=== PATIENT | female | born 1965 | race Caucasian/White ===

== ENCOUNTER 2017-07-21 10:30 | Outpatient (RCR) | payer OTHER, SELFPAY ==
--- NOTE | 2017-06-08 15:34 | HP.PTEVAL ---
Patient's Visit Information TALHA LIU is a 52 year old F referred to Physical Therapy by Zay Lazar with a diagnosis of L shoulder Injury. Date of Evaluation: 06/08/17 Physical Therapist: Jessica Rosado - Visit Plan Frequency: 2-3x /Week Duration: 4-6 Weeks Plan: 2-3X/ week for 4-6 weeks for L should PROM, AAROM, AROM, postural, scapular and RC strength with HEP and modalities PRN - Subjective Subjective: Pt had surgery last Jul (cleaned up RC cuff/ clipped bicep tendon) the and was going down stairs and slipped on the steps and now her shoulder hurts now. It was her L shoulder. It hurts in the front of the shuolder but sometimes it goes down the arm to the thumb and it is numb from time to time. Dr Arceo did her RC surgery. Dr Mckeon took an x-ray and it did not show anything. No x-rays of your neck. She has neck pain currently 10/05. She has weakness in her L hand. She felt something pop and like her bone rubbed against the bone. SHe is R handed. SHe holds her phone under L ear. It hurt immed at site of the injury. She is sleeping ok (4-5 hours). Pain is more with shouldr ER and holding her purse. She can sleep on that side - Pain L shoulder pain Pain Intensity (Out of 10): 6 c-spine Pain Intensity (Out of 10): 4 - Objective Posture: good. L shoulder AROM 130 degrees abd, 130 degrees flexion, ER WFL IR L1. R shoulder AROM 170 degrees abd, approx 170 flexion, ER WFL and IR t8. + HK test for pain on the L, - Empty can on the L. C-spine AROM: flexion 100%, ext 50%, SB L 50%, SBR 75% Rot B 75%. Palpation: tender R anterior shoulder under the acrominio. Able to get better ROM with PROM on the L than Active ROM. R gauge and instrument inspector strength 65# and L gauge and instrument inspector strength 60#. - Goals Goal 1:: I HEP Goal Time Frame: 4-6 Weeks Goal 2:: Increase L shoulder AROM to equal that on the R without pain (at time of eval: L shoulder AROM 130 degrees abd, 130 degrees flexion, ER WFL IR L1. R shoulder AROM 170 degrees abd, approx 170 flexion, ER WFL and IR t8) Goal Time Frame: 4-6 Weeks Goal 3:: Decrease L shoulder pain to 0/10 with carrying her purse or pushing out into ER Goal Time Frame: 4-6 Weeks Goal 4:: Sit with upright posture during treatment sessions Goal Time Frame: 4-6 Weeks - Rehabilitation Potential Rehabilitation Potential: Good - Anticipated Interventions Patient/Client Instruction: Educate patient on: Condition For the Purpose of:: To decrease pain, To decrease swelling/inflammation, To increase ROM, To improve nutrient delivery to tissue, To improve muscle performance and motor function, To improve ability to perform ADL's, To increase tolerance to activity/condition/position, To improve performance and independence with ADL's, To decrease soft tissue restriction, To increase flexibility/ROM Therapeutic Exercise to Include: Strength training, Postural training, Flexibilty training, Passive ROM, Active ROM, Scapular Strength/Stabilization For the Purpose of:: To decrease pain, To decrease swelling/inflammation, To increase ROM, To improve nutrient delivery to tissue, To improve muscle performance and motor function, To improve ability to perform ADL's, To increase tolerance to activity/condition/position, To improve performance and independence with ADL's, To improve ability of physical actions for home/community/work/leisure, To increase flexibility/ROM Manual Therapy Techniques to Include: Passive ROM, Soft tissue mobilization For the Purpose of:: To decrease pain, To increase ROM, To improve nutrient delivery to tissue, To improve muscle performance and motor function, To improve health of tissue, To decrease soft tissue restriction IF ES: Yes Cryotherapy (ice pack, ice massage): Yes Thermo therapy (hot pack): Yes Ultrasound (thermal/non thermal): Yes For the Purpose of:: To decrease pain, To decrease swelling/inflammation, To increase ROM, To improve nutrient delivery to tissue, To improve muscle performance and motor function Thank you for the opportunity to evaluate your patient. For Medicare and Medicare HMO plans, please review the plan of care and approve it. It will need to be FAXED BACK to us at [phone] for Medicare purposes. Please let me know if there are questions or concerns regarding this plan of care. Physician Signature: Date:
--- NOTE | 2017-07-02 11:39 | HP.PTEVAL_ITS ---
Patient's Visit Information TALHA LIU is a 52 year old F referred to Physical Therapy by Zay Lazar with a diagnosis of L shoulder Injury. Date of Evaluation: 06/08/17 Physical Therapist: Jessica Rosado - Visit Plan Frequency: 2-3x /Week Duration: 4-6 Weeks Plan: Continue with strengthening in painfree range and increasing ROM. Await MRI results - Subjective Subjective: Pt had surgery last Jul (cleaned up RC cuff/ clipped bicep tendon) the and was going down stairs and slipped on the steps and now her shoulder hurts now. It was her L shoulder. It hurts in the front of the shuolder but sometimes it goes down the arm to the thumb and it is numb from time to time. Dr rAceo did her RC surgery. Dr Mckeon took an x-ray and it did not show anything. No x-rays of your neck. She has neck pain currently 10/05. She has weakness in her L hand. She felt something pop and like her bone rubbed against the bone. SHe is R handed. SHe holds her phone under L ear. It hurt immed at site of the injury. She is sleeping ok (4-5 hours). Pain is more with shouldr ER and holding her purse. She can sleep on that side - Pain L shoulder pain Pain Intensity (Out of 10): 4 c-spine Pain Intensity (Out of 10): 3 - Objective Posture: good. L shoulder AROM 130 degrees abd, 130 degrees flexion, ER WFL IR L1. R shoulder AROM 170 degrees abd, approx 170 flexion, ER WFL and IR t8. + HK test for pain on the L, - Empty can on the L. C-spine AROM: flexion 100% , ext 50%, SB L 50%, SBR 75% Rot B 75%. Palpation: tender R anterior shoulder under the acrominio. Able to get better ROM with PROM on the L than Active ROM. R dental hygienist mobile coordinator strength 65# and L dental hygienist mobile coordinator strength 60#. - Goals Goal 1:: I HEP Goal Time Frame: 4-6 Weeks Goal 2:: Increase L shoulder AROM to equal that on the R without pain (at time of eval: L shoulder AROM 130 degrees abd, 130 degrees flexion, ER WFL IR L1. R shoulder AROM 170 degrees abd, approx 170 flexion, ER WFL and IR t8) Goal Time Frame: 4-6 Weeks Goal 3:: Decrease L shoulder pain to 0/10 with carrying her purse or pushing out into ER Goal Time Frame: 4-6 Weeks Goal 4:: Sit with upright posture during treatment sessions Goal Time Frame: 4-6 Weeks - Rehabilitation Potential Rehabilitation Potential: Good - Anticipated Interventions Patient/Client Instruction: Educate patient on: Condition For the Purpose of:: To decrease pain, To decrease swelling/inflammation, To increase ROM, To improve nutrient delivery to tissue, To improve muscle performance and motor function, To improve ability to perform ADL's, To increase tolerance to activity/condition/position, To improve performance and independence with ADL's, To decrease soft tissue restriction, To increase flexibility/ROM Therapeutic Exercise to Include: Strength training, Postural training, Flexibilty training, Passive ROM, Active ROM, Scapular Strength/Stabilization For the Purpose of:: To decrease pain, To decrease swelling/inflammation, To increase ROM, To improve nutrient delivery to tissue, To improve muscle performance and motor function, To improve ability to perform ADL's, To increase tolerance to activity/condition/position, To improve performance and independence with ADL's, To improve ability of physical actions for home/ community/work/leisure, To increase flexibility/ROM Manual Therapy Techniques to Include: Passive ROM, Soft tissue mobilization For the Purpose of:: To decrease pain, To increase ROM, To improve nutrient delivery to tissue, To improve muscle performance and motor function, To improve health of tissue, To decrease soft tissue restriction IF ES: Yes Cryotherapy (ice pack, ice massage): Yes Thermo therapy (hot pack): Yes Ultrasound (thermal/non thermal): Yes For the Purpose of:: To decrease pain, To decrease swelling/inflammation, To increase ROM, To improve nutrient delivery to tissue, To improve muscle performance and motor function Thank you for the opportunity to evaluate your patient. For Medicare and Medicare HMO plans, please review the plan of care and approve it. It will need to be FAXED BACK to us at [phone] for Medicare purposes. Please let me know if there are questions or concerns regarding this plan of care. Physician Signature: Date:
--- NOTE | 2017-07-21 11:12 | HP.PTDCSUM ---
HP - PT D/C Summary It has been my pleasure to treat TALHA LIU under orders from Zay Lazar, for the diagnosis of L shoulder Injury for a total of 10 visit(s). Discharge Date: 07/21/17 Please see the following information for a summary of their discharge status. - Subjective Subjective: Pt has surgery Aug 24, 2017 will be surgery. Pt reports that she may be a little stronger but no other improvement was made with PT. She has her HEP but it makes her hurt worse - Pain L shoulder pain Pain Intensity (Out of 10): 4 c-spine Pain Intensity (Out of 10): 3 - Overall Improvement % Improvement: 0 - Objective Objective/Function: AROM L shoulder flex 130 degrees, to L3, ER WFL. MMT L shoulder: ER 3-/5, : flexion 4-/5, IR 4/5, abd 3+/5. Increase pain with abd resisted. Pt sits with good posture. - Goals Goal 1:: I HEP Goal Progress: Goal Met Goal 2:: Increase L shoulder AROM to equal that on the R without pain (at time of eval: L shoulder AROM 130 degrees abd, 130 degrees flexion, ER WFL IR L1. R shoulder AROM 170 degrees abd, approx 170 flexion, ER WFL and IR t8) Goal Progress: Not Progressing Goal 3:: Decrease L shoulder pain to 0/10 with carrying her purse or pushing out into ER Goal Progress: Not Progressing Goal 4:: Sit with upright posture during treatment sessions Goal Progress: Goal Met - Plan Plan: DC PT to HEP and under surgeon care. - D/C Information Discharge Comments: DC PT back to surgeon If there are questions or concerns regarding this patient's physical therapy, please feel free to call me at [phone]. Thank you for the referral of this patient. Sincerely, Jessica Rosado
--- NOTE | 2017-07-21 11:23 | HP.PTDCS(2) ---
HP - PT D/C Summary (2) It has been my pleasure to treat TALHA LIU under orders from Zay Lazar, for the diagnosis of cervicalgia for a total of 6 visit(s). Discharge Date: Please see the following information for a summary of their discharge status. - Subjective Subjective: Pt reports that last time she had dry needling her she got an intense WOODY that lasted 2 days. She has surgery on her shoulder Aug 24. She has had neck pain for years and feels an MRI is necessary. - Overall Improvement % Improvement: 0 - Objective Objective/Function/Assessment: Pt reports no improvement in symptoms. DN only helped once and the other two times it made things worse. c-spine AROM: flex 100%, ext 50%, SB B 75%, Rot B 75%. Great posture - Goals Patient Goals: Improve Mobility, Improve Function, Decrease Pain, Improve ROM Goal 1:: I HEP Goal Progress: Goal Met Goal 2:: Decrease neck pain to 1/10 with ADL's Goal Progress: Not Progressing Goal 3:: Abolish L hand numbness Goal Progress: Not Progressing Goal 4:: Decrease mid trap muscle tension Goal Progress: Not Progressing - Plan Plan: DC PT back to physician reassessment. - D/C Information If there are questions or concerns regarding this patient's physical therapy, please feel free to call me at [phone]. Thank you for the referral of this patient. Sincerely, Jessica Rosado
== END 2017-07-21 19:00 | disposition home or self-care (01) ==
LOC: PT 10:30
PROVIDERS: Family Provider Family Medicine; PCP Family Medicine; Visit Provider Family Medicine
DX: S49.92XD Unspecified injury of left shoulder and upper arm, subsequent encounter (principal)
CPT/HCPCS: 97014; 97035; 97110; 97140; 97161; 97530; G0283

== ENCOUNTER → 2017-08-03 06:19 | Outpatient (CLI) | payer OTHER, SELFPAY ==
[2017-08-03 08:44] LABS: Estradiol 14.2 pg/mL; Free T3 3.2 pg/mL (2.18-3.98); T4 Free Direct 1.06 ng/dL (0.76-1.46); Thyroid Stim Hormone (TSH) 2.52 uIU/mL (0.358-3.74)
[2017-08-04 08:59] LABS: Progesterone Level 0.08 ng/mL (See Comment)
[2017-08-04 14:52] LABS: DHEA Sulfate 57.8 ug/dL (41.2-243.7)
== END ==
PROVIDERS: Family Provider Family Medicine; PCP Family Medicine; Visit Provider Specialist
DX: N95.1 Menopausal and female climacteric states (principal); R53.81 Other malaise; E03.8 Other specified hypothyroidism
CPT/HCPCS: 36415; 82627; 82670; 84144; 84403; 84439; 84443; 84481; 82626

== ENCOUNTER → 2017-08-14 09:23 | Outpatient (CLI) | payer OTHER, SELFPAY ==
--- NOTE | 2017-08-14 09:30 | MRI_ITS ---
STUDY: MRI CERVICAL SPINE WITHOUT CONTRAST REASON FOR EXAM: Female, 52 years old. Neck pain and numbness radiating down the left arm TECHNIQUE: Standardized fat and water weighted pulse sequences were obtained in the sagittal and axial planes. COMPARISON: June 18, 2017 cervical spine radiographs FINDINGS: Straightening of normal cervical lordosis. Craniocervical junction appears unremarkable. No evidence for cord edema or myelomalacia seen. Mild anterior wedging of the C4, C5 and C6 vertebral bodies which appear chronic. Disc desiccation at all levels. Loss of disc height at C4-C5, C5-C6 and C6-C7 levels with endplate degenerative changes. Slight heterogeneity of the marrow signal without evidence for marrow edema. Multilevel facet arthrosis. Vertebral artery flow voids are patent. No paraspinal soft tissue mass is identified. Level by level analysis: C2-C3 level: Uncovertebral joint and facet joint degenerative changes without significant central canal stenosis or neural foraminal narrowing. C3-C4 level: Uncovertebral joint and facet joint degenerative changes with broad-based disc aspect complexes superimposed small central disc protrusion with mild effacement of ventral thecal sac without significant central canal stenosis. C4-C5 level: Uncovertebral joint and facet joint degenerative changes with broad-based assessed right complex resulting in moderate right-sided and [id number] left-sided neural foraminal narrowing with mild effacement of ventral thecal sac and flattening of the ventral surface of the spinal cord. C5-C6 level: Uncovertebral joint and facet joint degenerative changes with broad-based disc osteophyte complexes with superimposed right paracentral disc protrusion resulting in indentation and deformity of the right ventrolateral surface of the spinal cord with moderate left-sided and mild right-sided neural foraminal narrowing. C6-C7 level: Uncovertebral joint and facet joint degenerative changes with broad-based disc osteophyte complexes and a superimposed left paracentral and foraminal level disc protrusion with moderate to severe left-sided neural foraminal narrowing and mild flattening of the left ventral lateral surface of the spinal cord. C7-T1 level: Uncovertebral joint and facet joint degenerative changes with broadbase disc disc osteophyte complexes resulting in mild bilateral neural foraminal narrowing without significant central canal stenosis No paraspinal soft tissue mass. IMPRESSION: Cervical spondylotic changes predominating at C4-C5, C5-C6 and C6-C7 levels. Please see above level by level complete analysis. No evidence for acute cervical spine fractures. Electronically Signed: Naun Vásquez, at 11:28 EST Tel , Service support , MRI/Spine Cervical (Routine)
== END ==
PROVIDERS: Family Provider Family Medicine; PCP Family Medicine; Visit Provider Family Medicine
DX: M54.2 Cervicalgia (principal)
CPT/HCPCS: 72141

== ENCOUNTER 2017-08-24 05:45 | Day surgery (SDC) | payer OTHER, SELFPAY ==
[2017-08-18 07:16] LABS: Hematocrit 39.3 % (37-47); Hemoglobin 12.9 g/dl (12.0-15.0); Mean Corp Hgb Conc 32.8 g/gl (32-36); Mean Corpuscular Hgb 27.8 pg (27.0-32.0); Mean Corpuscular Volume 84.7 fL (81-99); Mean Platelet Vol. 9.8 fl (6.2-12.0); Platelet Count 232 K/mm3 (150-450); RBC Distribution Width CV 13.2 % (11.6-14.6); RBC Distribution Width SD 40.9 fl (35.1-43.9); Red Blood Count 4.64 M/mm3 (4.2-5.4); White Blood Count 4.5 K/mm3 (4.4-11.0)
[2017-08-18 07:29] LABS: Scan Indicated on CBC? Y/N NO
[2017-08-18 07:39] LABS: Anion Gap 8 (5-15); BUN 12 mg/dL (7-18); Calcium,Total 8.5 mg/dL (8.5-10.1); Chloride 102 mmol/L (98-107); EST Glomerular Filtration Rate 50 mL/min (>60); Est Glom Filt Rate - Afr Amer 60 mL/min (>60); Glucose 155 mg/dL (74-106); Sodium Level 139 mmol/L (136-145)
--- NOTE | 2017-08-18 08:43 | EKG12_ITS ---
Test Reason : PREOP Blood Pressure : / mmHG Vent. Rate : 061 BPM Atrial Rate : 061 BPM P-R Int : 134 ms QRS Dur : 082 ms QT Int : 384 ms P-R-T Axes : 044 048 061 degrees QTc Int : 386 ms Normal sinus rhythm Normal ECG Confirmed by TODD LEONE ([id number]), photography editor CORNELIO HANSEN ([id number]) on 08/19/2017 1:18:28 PM Referred By: Zay Lazar Confirmed By:TODD LEONE
[2017-08-24 05:55] VITALS: BP 129/82; PULSE 69; RESP 16; TEMP 37.1; O2SAT 100; BMI 27.2
--- NOTE | 2017-08-24 06:58 | DCINST_ITS ---
Discharge Activity: Return to Normal Activity, May not drive while taking narcotic pain medications., May Shower May shower in (days): 2 May resume sexual activity in: 6 weeks Ice area for (Minutes): 20 - use polar care as needed Weight Bearing Status: No weight bearing Additional Activity Instructions:: May flex and extend elbow ad lisa. Sling 24 7 except with shower. Call your doctor if your incision/area has: Continuous Slow Oozing, Sudden Increased Bleeding, Increased Pain/ Swelling, Increased Redness, Foul Smelling Discharge, Swelling at the incision site Call your doctor if you observe: Fever of 101 or Higher, Coldness, Increased Pain, Numbness or Tingling, Change in Color, Inability to urinate, Inability to have a bowel movement, Using more than one pad per hour, Shortness of breath, Dizziness, Fainting spells, Swelling in the ankles, Chest pain, Prolonged hiccoughing, Increased palpitations (irregular heartbeat), Calf discomfort, Uncontrolled pain Suture Line Care: Avoid Pulling/Pushing, Avoid Pinching/Bending Change Dressing in (Days):: 2 Remove Dressing in (days):: 2 Cleanse incision/area with: Soap & Water Additional Dressing/Incision Instructions:: May shower on . Remove dressing completely. Do not submerge wound. Replace with simple Band-Aids upon completion. Allergies/Adverse Reactions: Allergies No Known Allergies Allergy (Verified 08/17/17 15:23) Medications to take at Discharge armodafinil 50 mg tablet 150 mg PO QAM 08/15/17 bupropion HCl XL 300 mg 24 hr tablet, extended release 150 mg PO BID 08/15/17 celecoxib 50 mg capsule 200 mg PO DAILY 08/15/17 Prednisone 10 mg PO DAILY 08/17/17 Progesterone 100 mg PO DAILY 08/17/17 Spironolactone [Aldactone] 100 mg PO DAILY 08/17/17 Docusate Sodium [Colace] 100 mg PO BID PRN PRN #10 cap 08/24/17 Hydrocodone Bitart/Apap 5-325 [[place] 5/325] 1 - 2 tablet PO Q6H PRN PRN #30 tablet 08/24/17 ProMETHAzine [Phenergan] 25 mg PO Q4H PRN PRN #10 tab 08/24/17 The following prescriptions were given: ProMETHAzine [Phenergan] 25 mg PO Q4H PRN PRN #10 tab PRN Reason: Nausea Hydrocodone Bitart/Apap 5-325 [[place] 5/325] 1 - 2 tablet PO Q6H PRN PRN #30 tablet PRN Reason: Pain Docusate Sodium [Colace] 100 mg PO BID PRN PRN #10 cap PRN Reason: Constipation Primary Care Physician: Andrew Berrios MD [Primary Care Provider] - Please Follow Up With: Ace Pepper DO When: call [facility] for appt for 2 weeks Proposed Discharge Date: 08/24/17
[2017-08-24] MEDS: Cefazolin 2 GM in 0.9% Normal Saline 100 ML IV (07:30)
--- NOTE | 2017-08-24 08:37 | OP.PN_ITS ---
Immediate Post-Op Note Date of Procedure: 08/24/17 Primary Surgeon/Physician: Ace Pepper, grapple skidder operator: none Pre-Operative Diagnosis: Left shoulder partial rotator cuff tear subacromial and subcoracoid impingement Post-Operative Diagnosis: Same as above Surgery/Procedure Performed:: Butch diagnostic arthroscopy partial articular sided rotator cuff debridement and arthroscopic subcoracoid decompression Description of Surgical Findings:: See dictation Estimated Blood Loss: 10 Specimen's removed: None Type of Anesthesia:: Block,Regional ASA Class: ASA1 Normal Healthy Patient - Admit VTE Documentation VTE Present on Admission: No VTE Mechan Device Prophylaxis: SCD's, Knee High MARVIN Hose VTE Pharm Prophylaxis ordered?: No
[2017-08-24 08:43] VITALS: BP 129/82; BP 142/88; PULSE 90; RESP 16; TEMP 36.3; O2SAT 98
--- NOTE | 2017-08-24 08:44 | PCM.OPRPT ---
Report of Operation Date of Procedure: 08/24/17 Pre-Operative Diagnosis: Left shoulder partial rotator cuff tear subacromial and subcoracoid impingement Post-Operative Diagnosis: Same as above Surgery/Procedure Performed:: Butch diagnostic arthroscopy partial articular sided rotator cuff debridement and arthroscopic subcoracoid decompression Description of Surgical Findings:: 52-year-old female with recalcitrant left shoulder pain after having previously undergone a shoulder arthroscopy and a reported rotator cuff repair with a proximal biceps tenodesis. This was done by an outside provider. Having failed conservative measures patient elected for a diagnostic arthroscopy rotator cuff repair versus debridement and evaluation of the biceps if able for consideration for subpectoral tenodesis if there was instability. Patient was aware that the biceps was not easily identifiable limited attempt at retrieval would be made as it may be more problematic. Patient was subsequently consented the aforementioned procedure. She was met in the holding area where the left upper extremity was marked and identified by the with surgeon. Patient was taken to the operating room in satisfactory condition with somewhat to place to identify patient up procedure limb. She received 2 g of Ancef. She underwent a successful interscalene block. She was then prepped and draped in the usual fashion. Left upper extremity was placed into the [place] O arm boothe. Again the patient was placed into the beachchair position with all bony and soft tissue prominences protected. Her head was in a fine neutral position. She was then prepped and draped in usual fashion. Posterior portal from previous operative intervention was used. We entered into into the intra-articular space. Upon identification of the anatomic triangle a revised anterior portal was established for better visualization of the intra-articular space a little bit more medial. Diagnostic scope should the patient be absent in the biceps tendon as expected. She had some mild fraying to the labral tissue posterior superiorly. She had adhesions over the superior aspect of the glenoid. The subscapularis otherwise was normal. She had mild fraying to the articular side of the rotator cuff which was gently debrided. Otherwise the overall tickler articular margin looked very good. Anterior central posterior cuffs were well within normal limits. She had mild synovitis within the shoulder joint but no loose bodies x-ray pouch. Posterior inferior and anterior inferior labrum was otherwise normal. She had grade II chondromalacia changes the glenoid. Grade 1 changes to the humeral head. The subscapularis again had good type formation. The biceps tenodesis was not visualized anteriorly. At that point the scope was retracted move the subacromial space established a lateral portal. We performed a revision subacromial bursectomy. An acromioplasty was not needed. The patient had remnant either Kenalog crystals within the shoulder or some degree of calcific tendinitis. This was debrided mechanically using a shaver and vapor cautery and releasing the gutters circumferentially around the shoulder joint. At that point time we worked our way anteriorly over top of the shoulder. With visualization from the lateral portal we then performed a standard arthroscopic subcoracoid decompression using mechanical shaver and vapor. We identified the coracoid process itself release any scar formation 0 anteriorly. The patient's strap muscles were slightly rubbing anteriorly but again this cannot necessarily be released. CA ligament was still intact and mildly hypertrophied hypertrophic it was gently debrided to a stable rim. Otherwise evaluation of the subacromial space in the subcortical space revealed just simple scar formation which was debrided. The biceps tendon was not visualized I did not make an attempt to open the sheath as I did not want to ensure that injure that area of the shoulder. At that point time I felt the scope was completed. The scope was retracted portal sites were closed with 3-0 nylon. She was then dressed in usual fashion with Xeroform 4 x 4's ABDs and Medipore tape and placed into a simple sling. If the patient were to fail operative intervention my next consideration would be for an open approach to the shoulder to decompress the biceps formally within the groove and then deformity the most likely suprapectoral biceps tenodesis at that point time. This would remove the biceps from the groove still be may be problematic. For the patient at this time. However will rehab the patient at the decompression and see how she does. Any major issues please contact me. Other available all time during our procedure. We had no drains or complications and no implants. geographic information systems director: none Type of Anesthesia:: Block,Regional Specimen's removed: None Estimated Blood Loss (mL): 10 Grafts/Implants Used: None - Complications None - Admit VTE Documentation VTE Present on Admission: No VTE Mechan Device Prophylaxis: SCD's, Knee High MARVIN Hose VTE Pharm Prophylaxis ordered?: No Reason prophylaxis not ordered:: Treatment Not Indicated
[2017-08-24] MEDS: Ketorolac 30 MG/ML Syringe IV (08:58)
[2017-08-24 09:00] VITALS: BP 129/82; BP 132/89; PULSE 84; RESP 16; O2SAT 99
[2017-08-24 09:15] VITALS: BP 129/82; BP 134/92; PULSE 75; RESP 16; TEMP 36.6; O2SAT 95
[2017-08-24 09:54] VITALS: BP 129/82
== END 2017-08-24 10:25 | disposition home or self-care (01) ==
LOC: SDC 05:45 → AC 05:46
PROVIDERS: Family Provider Family Medicine; PCP Family Medicine; Visit Provider Orthopaedic Surgery
PROC: (CPT 29827; principal; 2017-08-24 06:55)
DX: M75.42 Impingement syndrome of left shoulder (principal); M75.112 Incomplete rotator cuff tear or rupture of left shoulder, not specified as traumatic; M25.512 Pain in left shoulder; G89.29 Other chronic pain
CPT/HCPCS: 01630; 29822; 29826; 64450; 36415; 80048; 85027; J7120

== ENCOUNTER → 2017-09-07 06:27 | Outpatient (CLI) | payer OTHER, SELFPAY ==
[2017-09-07 07:51] LABS: Estradiol 17.3 pg/mL
[2017-09-08 09:48] LABS: Progesterone Level 8.91 ng/mL (See Comment)
== END ==
PROVIDERS: Family Provider Family Medicine; PCP Family Medicine; Visit Provider Specialist
DX: N95.1 Menopausal and female climacteric states (principal)
CPT/HCPCS: 36415; 82670; 84144; 84403

== ENCOUNTER 2018-04-28 15:45 | Outpatient (RCR) | payer OTHER, SELFPAY ==
--- NOTE | 2017-04-28 15:12 | MASS.DISCH ---
Massage Therapy Discharge Summary: Discharge Date: 04/28/2017 Caron was seen for a massotherapy evaluation on 07/23/2016 with the diagnosis of cervicalgia. She was treated with ten sessions of massage consisting of deep tissue techniques, myofascial release and trigger point compression to her neck, shoulders, lower back and hips. Caron responded well to the therapy by reporting decreased tension and pain throughout her head, neck and lower back muscle groups. Her goals for therapy were met throughout the treatment sessions. At this time Caron is being discharged from our care at [facility] facility.
--- NOTE | 2017-04-28 15:18 | DS.PCM_ITS ---
Massage Therapy Discharge Summary: Discharge Date: 04/28/2017 Caron was seen for a massotherapy evaluation on 07/23/2016 with the diagnosis of cervicalgia. She was treated with ten sessions of massage consisting of deep tissue techniques, myofascial release and trigger point compression to her neck , shoulders, lower back and hips. Caron responded well to the therapy by reporting decreased tension and pain throughout her head, neck and lower back muscle groups. Her goals for therapy were met throughout the treatment sessions. At this time Caron is being discharged from our care at [facility] facility.
--- NOTE | 2017-07-20 20:01 | MASS.EVAL_ITS ---
Massage Therapy Evaluation: Initial Evaluation Date: 07/20/2017 SUBJECTIVE: Caron is a 52 year old female who was referred to the [facility] facility for a massotherapy evaluation by Dr. Zay Lazar with the diagnosis of back pain. Caron presents today with the symptoms of tension and pain in her neck, upper back, lower back and right shoulder. She reports having a medical history of arthritis, chronic neck and back pain, five or more headaches a week and radiating pain in neck, arms, and legs. She reports having minimal limitations during his daily activities currently. OBJECTIVE: Upon observation Caron has poor posture with her head forward and shoulders forward from the neutral position in sitting and standing. After examination and palpation I found Caron to have very high muscle tension in her scalenes, trapezius, rhomboids, and sub occipitals with moderate restrictions in cervical ROM. Her thoracic and lumbar paraspinals were tender with muscle knots. Her hips and lumbar region were also tight with tender points. The first treatment consisted of a one hour massage to her upper body with myofascial release, muscle stripping and trig point compression techniques. ASSESSMENT: I feel that Caron is a good candidate for massotherapy at this time. She had a favorable response to the first treatment with reduction in her muscle aches, pain and tension. She also had improvement in her cervical and lumbar range of motion with improved flexibility in her neck and back. PLAN: The plan of care was reviewed with the patient. The patient is to be seen on as needed basis for a total of ten sessions with the recommendation of once every four weeks for a one hour treatment.
== END 2018-04-28 19:00 | disposition home or self-care (01) ==
LOC: MASS 15:45
PROVIDERS: Family Provider Family Medicine; PCP Family Medicine; Visit Provider Family Medicine
DX: M54.5 Low back pain (principal)
CPT/HCPCS: 97124

== ENCOUNTER → 2018-05-30 15:32 | Outpatient (CLI) | payer OTHER, SELFPAY ==
--- NOTE | 2018-05-30 15:34 | BI_ITS ---
MAMMOGRAPHY - BILATERAL SCREENING REASON FOR EXAM: Female, 53 years old. Routine annual screening examination. PERTINENT HISTORY: Non-contributory. TECHNIQUE: Digital bilateral breast jayson (3D mammographic acquisition) in the CC and MLO projections. 2-D mediolateral oblique (MLO) and craniocaudad (CC) views of both breasts were obtained. CAD: Full Field Digital Mammography with Computer Added Detection was performed. COMPARISON: Comparison is made with prior examination dated May 27, 2017 and May 19, 2016. FINDINGS: Breast Composition: There are scattered areas of fibroglandular density. There are no dominant masses or suspicious calcifications. No other significant abnormalities are identified. There has been no significant change since the prior study. BI/SCREENING MAMM (CAD), BILAT IMPRESSION: Stable bilateral screening mammogram. Yearly follow-up mammogram recommended. (A) ASSESSMENT CATEGORY: BIRADS Category 1: Negative. A letter regarding these results will be sent to the patient by the facility within 30 days. Approximately 10% of breast cancers are not detected by mammography. A normal mammogram should not delay biopsy of a clinically suspicious abnormality. [id number] Electronically Signed: Moises Valerio MD at 8:19 EST Tel [phone], Service support ,
== END ==
PROVIDERS: Family Provider Family Medicine; PCP Family Medicine; Referring Provider Family Medicine; Visit Provider Family Medicine
DX: Z12.31 Encounter for screening mammogram for malignant neoplasm of breast (principal)
CPT/HCPCS: 77063; 77067

== ENCOUNTER → 2018-09-20 16:57 | Outpatient (CLI) | payer OTHER, SELFPAY ==
[2018-09-20 16:46] VITALS: BMI 28.6
--- NOTE | 2018-09-20 16:59 | RAD_ITS ---
STUDY: X-RAY - RIGHT KNEE REASON FOR EXAM: Female, 53 years old. Trauma TECHNIQUE: 4 view(s) of the knee. COMPARISON: None. FINDINGS: Normal visualized distal femur. Normal visualized proximal tibia and fibula. Normal proximal tibiofibular articulation. Normal medial femorotibial compartment. Normal lateral femorotibial compartment. Normal patellofemoral articulation. The soft tissue structures are unremarkable. RAD/Knee 4 or More Views IMPRESSION: Normal x-ray examination of the knee. Electronically Signed: Benjamín Herrera MD at 18:04 EDT , Service support ,
--- NOTE | 2018-09-20 16:59 | RAD_ITS ---
STUDY: X-RAY - RIGHT WRIST REASON FOR EXAM: Female, 53 years old. Fall. TECHNIQUE: 3 view(s) of the wrist were obtained. COMPARISON: None. FINDINGS: Normal visualized distal radius and ulna. Tiny calcification beyond the tip of the ulnar styloid may be a calcification in the triangular fibrocartilage or an old avulsion fracture. Normal radiocarpal articulation. Normal distal radioulnar articulation. Normal carpal bones. Normal carpal articulations. Normal carpometacarpal articulation of the thumb. Normal second through fifth carpometacarpal articulations. Normal visualized metacarpal bones. The soft tissue structures are unremarkable. There is no demonstrated acute fracture. RAD/Wrist min 3 Views IMPRESSION: No acute abnormality. Electronically Signed: Romario Martinez MD at 18:14 EDT , Service support ,
== END ==
PROVIDERS: Family Provider Family Medicine; PCP Family Medicine; Referring Provider Physician Assistant Surgical; Visit Provider Physician Assistant Surgical
DX: S80.01XA Contusion of right knee, initial encounter (principal); S66.911A Strain of unspecified muscle, fascia and tendon at wrist and hand level, right hand, initial encounter
CPT/HCPCS: 73110; 73564

== ENCOUNTER → 2019-02-02 20:00 | Outpatient (CLI) | payer OTHER, SELFPAY ==
[2018-12-28 10:41] VITALS: BMI 29.8
== END ==
PROVIDERS: Family Provider Family Medicine; PCP Family Medicine; Referring Provider Internal Medicine Critical Care Medicine; Visit Provider Internal Medicine Critical Care Medicine
DX: G47.33 Obstructive sleep apnea (adult) (pediatric) (principal)
CPT/HCPCS: 95811

== ENCOUNTER → 2019-02-16 09:00 | Outpatient (CLI) | payer OTHER, SELFPAY ==
[2019-01-25 06:52] VITALS: BMI 29.8
== END ==
PROVIDERS: Family Provider Family Medicine; PCP Family Medicine; Visit Provider Nurse Practitioner Acute Care
DX: Z46.89 Encounter for fitting and adjustment of other specified devices (principal)

== ENCOUNTER → 2019-03-17 13:00 | Outpatient (CLI) | payer OTHER, SELFPAY ==
[2019-01-25 06:52] VITALS: BMI 29.8
== END ==
PROVIDERS: Family Provider Family Medicine; PCP Family Medicine; Referring Provider Family Medicine; Visit Provider Family Medicine
DX: N30.01 Acute cystitis with hematuria (principal)
CPT/HCPCS: 87086

== ENCOUNTER → 2019-04-05 08:33 | Outpatient (CLI) | payer OTHER, SELFPAY ==
[2019-04-04 05:57] VITALS: BMI 31.6
[2019-04-05 09:24] LABS: Iron 60 ug/dL (50-170); Iron Binding Capacity,Total 449 ug/dL (250-450); PERCENT IRON SATURATION 13.4 % (15.0-55.0)
== END ==
PROVIDERS: Family Provider Family Medicine; PCP Family Medicine; Referring Provider Internal Medicine Critical Care Medicine; Visit Provider Internal Medicine Critical Care Medicine
DX: G47.33 Obstructive sleep apnea (adult) (pediatric) (principal); G25.81 Restless legs syndrome
CPT/HCPCS: 36415; 83540; 83550

== ENCOUNTER → 2019-05-05 10:18 | Outpatient (CLI) | payer OTHER, SELFPAY ==
[2019-04-04 05:57] VITALS: BMI 31.6
[2019-05-05 12:40] LABS: Thyroid Stim Hormone (TSH) 1.16 uIU/mL (0.358-3.74)
[2019-05-05 12:45] LABS: Absolute Lymphocyte Count 1.71 X10^3/uL (0.83-4.51); Absolute Neutrophil Count 3.2 X10^3/uL (2.0-7.7); Basophil# 0.04 X10^3/uL; Basophil% 0.7 % (0-1); Eosinophil# 0.17 X10^3/uL; Hematocrit 35.7 % (37-47); Lymphocyte # 1.71 X10^3/ul (4.0); Lymphocyte % 30.6 % (19-41); Mean Corp Hgb Conc 30.8 g/dL (32-36); Mean Corpuscular Hgb 24.7 pg (27.0-32.0); Mean Platelet Vol. 11.7 fl (6.2-12.0); Monocyte# 0.45 X10^3/uL; Monocyte% 8.1 % (0-10); NRBC Flagged by Analyzer 0 % (0-5); Neutrophil % 57.2 % (47-70); Platelet Count 234 K/mm3 (150-450); RBC Distribution Width CV 13.7 % (11.6-14.6); RBC Distribution Width SD 40.1 fl (35.1-43.9); Red Blood Count 4.46 M/mm3 (4.2-5.4); White Blood Count 5.6 K/mm3 (4.4-11.0)
== END ==
PROVIDERS: Family Provider Family Medicine; PCP Family Medicine; Referring Provider Family Medicine; Visit Provider Family Medicine
DX: R53.83 Other fatigue (principal)
CPT/HCPCS: 36415; 84443; 85025

== ENCOUNTER → 2019-05-31 13:30 | Outpatient (CLI) | payer OTHER, SELFPAY ==
[2019-04-04 05:57] VITALS: BMI 31.6
--- NOTE | 2019-05-31 13:32 | BI_ITS ---
MAMMOGRAPHY - BILATERAL SCREENING REASON FOR EXAM: Female, 54 years old. Routine annual screening examination. PERTINENT HISTORY: Non-contributory. TECHNIQUE: Digital bilateral breast hollie (3D mammographic acquisition) in the CC and MLO projections. 2-D mediolateral oblique (MLO) and craniocaudad (CC) views of both breasts were obtained. CAD: Full Field Digital Mammography with Computer Added Detection was performed. COMPARISON: Comparison is made with prior examination dated May 30, 2018 and May 27, 2017. FINDINGS: Breast Composition: There are scattered areas of fibroglandular density. There are no dominant masses or suspicious calcifications. No other significant abnormalities are identified. There has been no significant change since the prior study. BI/SCREEN MAMM (CAD) W/HOLLIE BILAT IMPRESSION: Stable bilateral screening mammogram. Yearly follow-up mammogram recommended. (A) ASSESSMENT CATEGORY: BIRADS Category 1: Negative. A letter regarding these results will be sent to the patient by the facility within 30 days. Approximately 10% of breast cancers are not detected by mammography. A normal mammogram should not delay biopsy of a clinically suspicious abnormality. [id number] Electronically Signed: Moises Valerio, at 14:47 EST , Service support ,
== END ==
PROVIDERS: Family Provider Family Medicine; PCP Family Medicine; Referring Provider Family Medicine; Visit Provider Family Medicine
DX: Z12.31 Encounter for screening mammogram for malignant neoplasm of breast (principal)
CPT/HCPCS: 77063; 77067

== ENCOUNTER → 2019-06-08 12:39 | Outpatient (CLI) | payer OTHER, SELFPAY ==
[2019-04-04 05:57] VITALS: BMI 31.6
--- NOTE | 2019-06-08 12:55 | MRI_ITS ---
STUDY: MRI BRAIN WITH AND WITHOUT CONTRAST REASON FOR EXAM: Female, 54 years old. brain lesion, bilateral arm numbness and tingling, pain TECHNIQUE: Standardized multiplanar fat and water weighted pulse sequences were obtained. Dotarem 15cc iv was administered for the contrast portion of the examination. COMPARISON: None. FINDINGS: Normal size of the ventricles and extra-axial spaces for the patient''s age. Normal white matter tracts of the supratentorial brain. There is no evidence for recent intracranial ischemia or other cause of cytotoxic edema on diffusion weighted imaging (DWI). There are no demyelinating plagues of the supratentorial brain, brainstem or cerebellum. There are no findings suspicious for multiple sclerosis (MS). Normal T2* images of the brain without demonstrated susceptibility artifact. There is no demonstrated hemosiderin stain. No hydrocephalus. No midline shift. Normal bilateral basal ganglia. Normal thalami. There is no extra-axial fluid accumulation. Normal flow voids within the major intracranial circulation suggesting patency by spin echo criteria. Normal venous enhancement. There is no enhancing intra-axial or extra-axial abnormality. Normal sella turcica, pituitary gland, infundibular stalk, optic chiasm and hypothalamus. Normal tectal plate and pineal gland. Normal midbrain, dhaval and medulla. Normal cerebellum. Normal basal cisterns. Normal bilateral temporal bones. Normal bilateral internal auditory canals. No demonstrated orbital abnormality, within the constraints of a routine brain study. Normal visualized paranasal sinuses. Normal calvarium and skull base. Normal visualized soft tissue structures. Normal visualized upper cervical spine. MRI/Brain W/WO Contrast IMPRESSION: Negative unenhanced and enhanced MRI of the brain. Electronically Signed: Gordon Mosquera MD at 23:59 EST , Service support ,
--- NOTE | 2019-06-08 12:55 | MRI_ITS ---
STUDY: MRI CERVICAL SPINE WITHOUT CONTRAST REASON FOR EXAM: Female, 54 years old. Radiculopathy. Spinal stenosis. Bilateral arm numbness and tingling. TECHNIQUE: Standardized fat and water weighted pulse sequences were obtained in the sagittal and axial planes. COMPARISON: August 14, 2017 FINDINGS: No marked change from July. Cervical straightening. No significant scoliosis. No abnormal cervical cord signal. Symmetric vascular flow voids. No acute fracture, dislocation or osseous destruction. Mild facet joint arthrosis. No spondylolisthesis. Normal foramen magnum and brainstem-cervical cord junction. Normal craniovertebral junction. Normal anterior atlantoaxial articulation. Normal odontoid process. C2-3: Normal endplates. Normal disc height, signal and morphology. Normal central canal and intervertebral neural foramina. C3-4: Normal endplates. Shallow disc bulge. Normal central canal and intervertebral neural foramina. C4-5: Mild endplate spondylosis. Asymmetric disc bulge with mild central canal narrowing. Severe right and moderate left neural foramina narrowing. C5-6: Mild endplate spondylosis. Asymmetric disc bulge with mild central canal narrowing. Moderate left neural foraminal narrowing. Normal right neural foramina. C6-7: Mild endplate spondylosis. Left paracentral disc protrusion (axial image 34 series 8) with mild central canal narrowing. Severe left and mild right neural foraminal narrowing. C7-T1: Normal endplates. Bilobed disc bulge without central canal narrowing. Severe left and mild right neural foramina narrowing. MRI/Spine Cervical (Routine) IMPRESSION: No abnormal cervical cord signal Multilevel intervertebral disc disease with mild central canal narrowing at C4-5, C5-6 and C6-7 Multilevel neural foraminal narrowing predominating at C4-5 through C6-7 Cervical straightening with mild osteoarthritis Electronically Signed: Sinan Ashley DO at 10:58 EST Tel , Service support ,
== END ==
PROVIDERS: Family Provider Family Medicine; PCP Family Medicine; Referring Provider Neurological Surgery; Visit Provider Neurological Surgery
DX: M48.02 Spinal stenosis, cervical region (principal); M54.12 Radiculopathy, cervical region
CPT/HCPCS: 70553; 72141

== ENCOUNTER 2019-06-08 17:00 | Outpatient (RCR) | payer OTHER, SELFPAY ==
--- NOTE | 2018-04-28 18:35 | MASS.DISCH ---
Massage Therapy Discharge Summary: Discharge Date: 04/28/2018 Caron was seen for a massotherapy evaluation on 07/20/2017 with the diagnosis of back pain. She was treated with ten sessions of massage therapy consisting of deep pressure soft tissue techniques, myofascial release and trigger point compression to her neck, shoulders, thoracic, lower back and hips. Caron responded well to the therapy by reporting decreased tension and pain throughout her interscapular region, lower back and hips. Her goals for therapy were met throughout the treatment sessions. At this time this patient is being discharged from our care at [facility]
--- NOTE | 2018-07-20 12:24 | MASS.EVAL ---
Massage Therapy Evaluation: Initial Evaluation Date: 07/20/2018 SUBJECTIVE: Caron is a 53 year old female who was referred to the [facility] facility for a massotherapy evaluation by Dr. Lazar with the diagnosis of cervicalgia. Caron presents today with the symptoms of tension and pain in her neck and shoulders. She also complains of neck and back stiffness with pain intermittently in her low back, bilateral hip tension and right shoulder pain. She complains of numbness in bilateral upper extremities with radiating pain in her neck, upper extremities, lower extremities and buttocks. Caron reports having a past medical history of arthritis and bilateral shoulder surgeries. She reports having minimal improvement with exercise and stretching. OBJECTIVE: Upon observation Caron has slight head forward in sitting and standing postures. After examination and palpation I found Caron to have high muscle tension with tenderness and myofascial restrictions in her sub occipitals, levator scapulae, trapezius, rhomboids, scalenes, and thoracic paraspinals. Her QL?s, lumbar paraspinals, glute medius and minimus all were very tight with fascial restrictions, tender points and trigger points. The first treatment consisted of a one hour massage to her upper body with myofascial release, muscle stripping, trigger point compression techniques, and cervical manual traction. ASSESSMENT: I feel that Caron is a good candidate for massotherapy at this time. She had a favorable response to the first treatment with reduction in her muscle aches, pain and tension. She also had improvement in her cervical flexibility and low back flexibility. PLAN: The plan of care was reviewed with the patient. The patient is to be seen on an as needed basis for a total of ten sessions with the recommendation of once every month for a one hour treatment.
--- NOTE | 2018-07-20 12:33 | MASS.EVAL_ITS ---
Massage Therapy Evaluation: Initial Evaluation Date: 07/20/2018 SUBJECTIVE: Caron is a 53 year old female who was referred to the [facility] facility for a massotherapy evaluation by Dr. Lazar with the diagnosis of cervicalgia. Caron presents today with the symptoms of tension and pain in her neck and shoulders. She also complains of neck and back stiffness with pain intermittently in her low back, bilateral hip tension and right shoulder pain. She complains of numbness in bilateral upper extremities with radiating pain in her neck, upper extremities, lower extremities and buttocks. Caron reports having a past medical history of arthritis and bilateral shoulder surgeries. She reports having minimal improvement with exercise and stretching. OBJECTIVE: Upon observation Caron has slight head forward in sitting and standing postures. After examination and palpation I found Caron to have high muscle tension with tenderness and myofascial restrictions in her sub occipitals, levator scapulae, trapezius, rhomboids, scalenes, and thoracic paraspinals. Her QL?s, lumbar paraspinals, glute medius and minimus all were very tight with fascial res trictions, tender points and trigger points. The first treatment consisted of a one hour massage to her upper body with myofascial release, muscle stripping, trigger point compression techniques, and cervical manual traction. ASSESSMENT: I feel that Caron is a good candidate for massotherapy at this time. She had a favorable response to the first treatment with reduction in her muscle aches, pain and tension. She also had improvement in her cervical flexibility and low back flexibility. PLAN: The plan of care was reviewed with the patient. The patient is to be seen on an as needed basis for a total of ten sessions with the recommendation of once every month for a one hour treatment.
--- NOTE | 2019-06-15 13:11 | MASS.DISCH ---
Massage Therapy Discharge Summary: Discharge Date: 06/15/2019 Caron was seen for a massotherapy evaluation on 07/20/2018 with the diagnosis of cervicalgia. She was treated with nine sessions of massage therapy consisting of moderate to deep pressure soft tissue techniques, myofascial release and trigger point compression to her cervical, thoracic, lower back and upper extremities. Caron responded well to the therapy by reporting decreased tension and pain throughout her head, neck, shoulders, lower back and hips. Her goals for therapy were met throughout the treatment sessions. At this time this patient is being discharged from our care at [facility] facility.
== END 2019-06-08 19:00 | disposition home or self-care (01) ==
LOC: MASS 17:00
PROVIDERS: Family Provider Family Medicine; PCP Family Medicine; Referring Provider Family Medicine; Visit Provider Family Medicine
DX: M54.2 Cervicalgia (principal)
CPT/HCPCS: 97124

== ENCOUNTER → 2019-07-06 13:00 | Outpatient (CLI) | payer OTHER, SELFPAY ==
[2019-06-13 07:57] VITALS: BMI 31.6
--- NOTE | 2019-07-06 13:01 | VDLE_ITS ---
Reason For Study: Venous insufficiency RIGHT LEFT CFV is compressible, spontaneous, phasic, CFV is compressible, spontaneous, phasic, competent and demonstrates normal competent, and demonstrates normal augmentation. augmentation. FV is compressible, spontaneous, phasic, FV is compressible, spontaneous, phasic, competent and demonstrates normal competent and demonstrates normal augmentation. augmentation. POP V is compressible, spontaneous, phasic, POP V is compressible, spontaneous, phasic, competent and demonstrates normal competent and demonstrates normal augmentation. augmentation. T/P Trunk is compressible. T/P Trunk is compressible. PTV is compressible. PTV is compressible. RT PerV is compressible. LT PerV is compressible. Right GSV previous EVLA. Left GSV previous EVLA. SFJ is competent and measures 0.54 x 0.59 cm. SFJ is competent and measures 0.66 x 0.66 cm. SSV at junction is competent and measures SSV at junction is competent and measures 0.23 x 0.25 cm. 0.24 x 0.20 cm. Procedure Exam performed in department. Interpretation Summary Deep veins of the lower extremities are bilaterally patent and compressible segmentally. There is no evidence of deep vein thrombosis on either side. Valvular competence appears intact within the proximal deep venous systems bilaterally. Sapheno-femoral junctions are bilaterally competent . Great saphenous veins have been previously ablated bilaterally. Small saphenous veins are patent and competent bilaterally. Ordering Physician: Daniel Herr Referring Physician: Zay Lazar Performed By: Aide Mccabe RVT
== END ==
PROVIDERS: Family Provider Family Medicine; PCP Family Medicine; Referring Provider Surgery; Visit Provider Surgery
DX: I83.10 Varicose veins of unspecified lower extremity with inflammation (principal)
CPT/HCPCS: 93970

== ENCOUNTER → 2019-08-11 09:41 | Outpatient (CLI) | payer OTHER, SELFPAY ==
[2019-08-03 17:45] VITALS: BMI 31.6
--- NOTE | 2019-08-11 09:45 | RAD_ITS ---
HISTORY: sob ADDITIONAL HISTORY: None provided. COMPARISON: None TECHNIQUE: Frontal and lateral chest radiographs. Number of images including paperwork: 2 FINDINGS: LUNGS AND PLEURA: No consolidation, mass or pleural effusion. CARDIAC SILHOUETTE: Unremarkable. MEDIASTINUM AND GERMAN: Aortic tortuosity. UPPER ABDOMEN: Unremarkable. SKELETON AND SOFT TISSUES: No acute findings. Degenerative changes. Chronic appearing resection versus resorption of the right distal clavicle. OTHER DEVICES AND HARDWARE: None. RAD/Chest PA and Lateral IMPRESSION: No acute cardiopulmonary abnormality. at 0051 Reported and signed by: Laura Magallanes MD Electronically Signed: Laura Magallanes MD at 0:50 EST Tel , Service support ,
[2019-08-11 12:42] LABS: Absolute Lymphocyte Count 1.58 X10^3/uL (0.83-4.51); Absolute Neutrophil Count 3.7 X10^3/uL (2.0-7.7); Basophil# 0.06 X10^3/uL; Eosinophils% 4.9 % (0-5); Hematocrit 38.3 % (37-47); Hemoglobin 12.1 g/dL (12.0-15.0); Lymphocyte # 1.58 X10^3/ul (4.0); Lymphocyte % 25.6 % (19-41); Mean Corp Hgb Conc 31.6 g/dL (32-36); Mean Corpuscular Hgb 24.2 pg (27.0-32.0); Mean Corpuscular Volume 76.8 fL (81-99); Mean Platelet Vol. 10.7 fl (6.2-12.0); Monocyte# 0.47 X10^3/uL; Monocyte% 7.6 % (0-10); NRBC Flagged by Analyzer 0 % (0-5); Neutrophil # 3.67 X10^3/uL (2.7-7.7); Neutrophil % 59.6 % (47-70); Platelet Count 300 K/mm3 (150-450); RBC Distribution Width CV 15.7 % (11.6-14.6); RBC Distribution Width SD 43.1 fl (35.1-43.9); Red Blood Count 4.99 M/mm3 (4.2-5.4); White Blood Count 6.2 K/mm3 (4.4-11.0)
[2019-08-11 12:47] LABS: Anion Gap 3 (5-15); BUN 16 mg/dL (7-18); BUN/Creat Ratio 14.7 RATIO (10-20); Calcium,Total 9.6 mg/dL (8.5-10.1); Chloride 110 mmol/L (98-107); Creatinine, Serum 1.09 mg/dL (0.55-1.02); EST Glomerular Filtration Rate 55 mL/min (>60); Est Glom Filt Rate - Afr Amer 67 mL/min (>60); Glucose 88 mg/dL (74-106); Potassium 4.5 mmol/L (3.5-5.1); Sodium Level 140 mmol/L (136-145)
[2019-08-11 12:50] LABS: D-Dimer Quantitative (DVT/PE) 0.39 FEU/ug/m (0.27-0.49)
== END ==
PROVIDERS: PCP Family Medicine; Referring Provider Family Medicine; Visit Provider Family Medicine
DX: R06.02 Shortness of breath (principal)
CPT/HCPCS: 36415; 71046; 80048; 85025; 85379

== ENCOUNTER → 2019-12-01 16:24 | Outpatient (CLI) | payer OTHER, SELFPAY ==
[2019-11-02 09:43] VITALS: BMI 31.7
--- NOTE | 2019-12-01 16:27 | RAD_ITS ---
STUDY: X-RAY - CERVICAL SPINE REASON FOR EXAM: Female, 54 years old. cervical spondylosis TECHNIQUE: 8 view(s) of the cervical spine were obtained. COMPARISON: 08 June 2019, and July 2018, FINDINGS: Cervical spine is intact and aligned. Mineralization is normal. There are mild to moderate degenerative changes in the lower cervical segments. Prevertebral soft tissues are normal. The spine is stable between flexion and extension. Appearance is similar to priors. RAD/Cerv Spine Obl/Flex/Ext Comp IMPRESSION: Mild to moderate lower cervical spondylosis. No change since prior study Electronically Signed: Alon Shah, at 16:49 EDT Tel , Service support ,
== END ==
PROVIDERS: PCP Family Medicine; Referring Provider Orthopaedic Surgery Orthopaedic Surgery of the Spine; Visit Provider Orthopaedic Surgery Orthopaedic Surgery of the Spine
DX: M47.812 Spondylosis without myelopathy or radiculopathy, cervical region (principal)
CPT/HCPCS: 72052

== ENCOUNTER 2020-04-16 09:30 | Outpatient (RCR) | payer OTHER, SELFPAY ==
[2019-11-02 09:43] VITALS: BMI 31.7
--- NOTE | 2020-03-14 14:12 | HP.PTEVAL ---
Patient's Visit Information TALHA LIU is a 54 year old F referred to Physical Therapy by Dr. Robert Lincoln MD with a diagnosis of CERVICAL SPONDYLOSIS. S/P ACDF 02/26/20. Date of Evaluation: 03/14/20 Physical Therapist: Corinne Rodriguez PT, Cert MDT - Visit Plan Frequency: 2-3x /Week Duration: 4-6 Weeks Plan: START WITH SUBMAX CERVICAL ISOMETRICS. POSTURE CORRECTION/STRENGTHENING, INSTRUCTION IN APPROPRIATE BODY MECHANICS AND ACTIVITY MODIFICATIONS. START WITH UNILATERAL UE ELEVATION AND AVOID DANIS OVER-HEAD REACHING FOR 3 WEEKS. DANIS UE ROM, STRETCHING AND STRENGTHENING. HEP INSTRUCTION TO GRADUALLY INCLUDE THE FOLLOWING TOLERATED: REP RET IN SITTING. REP RET IN LYING. SCAP SQUEEZES. DEEP NECK FLEXOR LIFT. PRONE W'S. UE WALL SLIDES. PRONE ROWS. UE TBAND WALL WALKS. ANTERIOR/MIDDLE SCALENE STRETCH. UPPER TRAP STRETCH. LEVATOR SCAPULAE STRETCH. CHEST/PEC MAJOR AND MINOR STRETCH - Subjective Diagnosis: S/P ACDF 02/26/20. RIGHT WRIST CTR SAME DATE NECK SURGERY BY DR. LINCOLN. Work/Leisure: [employer]SEM[employer]Y [employer]. HAS BEEN OFF WORK SINCE DATE OF SURGERY. TENTATIVE RTW DATE IS AFTER APR 23 2018. Present symptoms: NECK PAIN. HEADACHE. TRIGGER THUMB LEFT. FIRST 3 FINGERS ARE NUMB LEFT HAND. OTHERWISE PATIENT DENIES NUMBNESS OR TINGLING. Present since: CHRONIC NECK PAIN. Pain Scale: HEAD AND NECK PAIN. Worst - 8/10 Least - 2/10. Currently: 310. Commenced as a result of: NO APPARENT REASON BUT PATIENT REPORTS SHE FELL OUT OF THE BATH TUB AND CRACKED HER HEAD ON THE COUNTER WEDNESDAY. SAW DR. LINCOLN FOR FOLLOW UP WEDNESDAY AND HE DOES NOT KNOW ABOUT THE FALL. PATIENT REPORTS THAT AFTER THE SURGERY SHE HAD TIGHT NECK MUSCLES BUT NO PAIN IN HER NECK. SINCE THE FALL SHE HAS INCREASED NECK AND HEAD PAIN. ALSO NEW RIGHT HEAD NUMBNESS (USUALLY JUST LEFT). Symptoms at onset: NECK. Worse: LOOKING DOWN, NOT HAVING THE RIGHT PILLOW OR PILLOW POSITION AT NIGHT. Better: ICE, HEAT, MASSAGE YESTERDAY HERE AT [facility]. Disturbed sleep: NO. Previous history/Previous treatment: PHYSICAL THERAPY, MASSAGES, CHIROPRACTOR, HOME TENS UNIT, HOME TX UNIT. This episode: SURGERY, MUSCLE RELAXERS. Dizziness: NO. Tinnitis: NO. Nausea: NO. Shortness of Breath: NO. Difficulty Swollowing: NO. Gait: NORMAL. HAVING THIS RECENT FALL IS UNUSUALLY AND PATIENT RELATES GETTING OFF BALANCE TO USE OF THE MUSCLE RELAXERS. Accidents: NO. Unexplained weight loss: NO. Imaging: NONE SINCE SURGERY BUT PENDING IN MAR 2020 AT FOLLOW UP. PMH/Recent major surgery: 2 L SHLD SURGERIES AND ONE SX RIGHT SHLD. PATIENT REPORTS FULL RECOVERY FOR SHLD SURGERIES. OTHER: PATIENT REPORTS SHE HAS BEEN RELEASED FROM WEARING HER CERVICAL COLLAR AND STILL HAS 10 LB LIFTING LIMIT. - Objective Sitting Posture/Standing Posture: GOOD. Other Observations: INDEP GAIT AND TRANSFERS WITH NO GROSS DEVICATIONS NOTED. Motor deficit: DANIS UE STRENGTH GROSSLY 4-5/10 WITH MMT'ING (DID NOT AGGRESSIVELY TEST DANIS UE STRENGTH). DEFERRED PRODUCTION SUPPORT ANALYST STENGTH TESTING TO OT CONSULT DUE TO RECENT CTR SURGERY RIGHT. Sensory deficit: DANIS UE LIGHT TOUCH SENSATION APPEARS INTACT AND SYMMETRICTAL EXCEPT HANDS. FURTHER TESTING DEFERRED TO OT CONSULT. ROM deficit: DANIS SHLD AND ELBOW ROM WFL. Reflexes: NT. Dural Signs: NEGATIVE DANIS UE'S. Cervical Mvmt Loss: Flex: MIN. Pro: NIL. Ext: RASHAUN. Ret: RASHAUN. RSB: MOD. LSB: MOD. R Rot: MOD. L Rot: MOD. PATIENT REPORTS INCREASED SHOOTING NUMBNESS IN THE BACK OF HER HEAD AFTER CERVICAL ROM TESTING COMPLETE BUT NO INCREASED SX'S DURING TESTING AND SHE DID NOT REMAIN WORSE A RESULT. Postural strength: FAIR. Palpation: NO ACUTE TENDERNESS WITH PALPATATION OF CERVICAL OR OCCIPUT REGIONS. TREATMENT: NEUROMUSCULAR REEDUCATION - RETRAINING OF MVMT AND POSTURE FOR SITTING, LYING AND STANDING ACTIVITIES. INITIATED HEP WITH CERVICAL ISOMETRICS ALL PLANES X 3 REPS EA. HOLDING FOR 3 SEC AND WITH 50% EFFORT. OTHER: THIS PT INSTRUCTED PATIENT TO CALL AND REPORT DETAILS OF RECENT FALL TO DR. MORGAN OFFICE AND PATIENT IS AGREEABLE. - Goals Goal 1:: DECREASE C/O HEAD AND NECK PAIN Goal Time Frame: 4-6 Weeks Goal 2:: IMPROVE PERSONAL CARE, READING, DRIVING AND NORMAL ADL FUNCTION Goal Time Frame: 4-6 Weeks Goal 3:: INSTRUCT IN PROPHYLAXIS Goal Time Frame: 4-6 Weeks - Anticipated Interventions Patient/Client Instruction: Educate patient on: Condition, Plan of Care, Risk Factors, Benefits of Fitness Program For the Purpose of:: To improve self management Thank you for the opportunity to evaluate your patient. For Medicare and Medicare HMO plans, please review the plan of care and approve it. It will need to be FAXED BACK to us at [phone] for Medicare purposes. For Medicare only, by signing this I certify the plan of care. Please let me know if there are questions or concerns regarding this plan of care. Physician Signature: Date:
--- NOTE | 2020-03-29 11:57 | HP.OTEVAL_ITS ---
Patient's Visit Information TALHA LIU is a 54 year old F, referred to Occupational Therapy by Dr. Robert Hernandez MD, with a diagnosis of right CTS. Date of Evaluation: 03/29/20 Occupational Therapist: Roxy Zacarias, OTR/L, CHT - Subjective This 54 year old female was seen for OT eval with dx of right CTS, and s/p CTR A ug 31st. pt also had C5-4-C7 fussion- CTR was more paiful from sx pt is right handed. 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 pt would like to be able to use her hand without pain with ADls and IADLS. - Pain right hand 2 Pain Intensity Range: 6 - ROM Wrist: right 55/65 left 65/70 - Strength Collector Of Aquarium Specimens: right 28# with pain left 65# Lateral Pinch: right 12# left 18# Tripod Pinch: right 12# left 10# left trigger thumb painful - Sensation Sensation Comments: reports return to normal - Quick DASH-Disab of Arm,Shoulder& Hand Quick DASH Score: 56.6650 - Goals Goal:: PT will demo a increase in right application administrator strength by 30# to increase pts ind. with ADLs and IADL by dc Goal:: pt will demo a increase in right wrist ROM equal to left by d/c to increase pts ind with ADLs and IADLs by d/c Goal:: PT will report pain no greater than 1/10 with use of right hand with ADLs and IADLs by d/c Goal:: pt will demo understanding of scar mtg and desensitization by end of 2nd visit Goal:: pt will report return to her PLOF with ALDs and IADls by d/c - Rehabilitation General Assessment: Pt currently 4weeks 4 days s/p and demo with a hypertrophic scar that causes pain with increase use of right hand. pt demo with a weak right application administrator strength. This is limiting pt with her IND with ADLs and IADls. pt would benefit from skilled OT services 1-2x week for 4 weeks. Today therapist ed, pt o n scar mtg and desensitization and PROM. Therapist will transition pt to a strengthening. Pt demo understanding of HEP and agree to POC. Rehabilitation Potential: Good - Anticipated Interventions A/AAROM/PROM, Strengthening, Scar Care, Triggerpoint Release, Desensitization, Sensory Retraining, Modalities, Orthoses, Ergonomic Education - Visit Plan Frequency: 1-2x /Week Duration: 3 Weeks TEXT: Thank you for the opportunity to evaluate your patient. For Medicare and Medicare HMO plans, please review the plan of care and approve it. It will need to be FAXED BACK to us at [phone] for Medicare purposes. Please let me know if there are questions or concerns regarding this plan of care. Physician Signature: Date:
--- NOTE | 2020-04-08 13:33 | HP.PTDCSUM ---
It has been my pleasure to treat TALHA LIU referred by Dr. Robert Lincoln MD, with the diagnosis of CERVICAL SPONDYLOSIS. S/P ACDF 02/26/20 for a total of 9 visit(s). Discharge Date: Please see the following information for a summary of their discharge status. Subjective: PATIENT REPORTS INCREASED NECK MOBILITY AND LESS TENSION IN HER NECK AND SHOULDERS. PATIENT REPORTS SHE HAD A HEADACHE YESTERDAY BUT NO NECK PAIN FOR A FEW DAYS. HEADACHES ARE BETTER OVER-ALL. NO NUMBNESS OR TINGLING INCLUDING LEFT HAND. PATIENT REPORTS SHE IS STILL IN OT AND HAS AN RAPHAEL'T AFTER PT TODAY. FOLLOW UP PENDING WITH DR. LINCOLN 04/23/20. PATIENT REPORTS SHE FEELS SHE CAN CONTINUE ON HER OWN NOW AND DENIES HAVING ANY CONCERNS. STATES SHE IS GLAD SHE HAD THE SURGERIES. UPON FURTHER QUESTIONING PATIENT REPORTS SHE DOES STILL GET SOME DANIS JAW PAIN LEFT > RIGHT THAT GOES UP TO THE TOP OF HER HEAD AND SHE IS QUESTIONING IF THIS IS RELATED TO GRINDING HER TEETH. SHE WILL DISCUSS WITH DR. LINCOLN AT FOLLOW UP. SHE REPORTS THE NUMBNESS HAS DECREASED BUT STILL COMES AND GOES. % Improvement: 70 Objective/Function: PATIENT WAS SEEN TODAY FOR RE-ASSESSMENT OF PROGRESS TOWARD THE SET PT GOALS AND THE NEED FOR FURTHER PHYSICAL THERAPY VS READINESS FOR DISCHARGE. PATIENT HAS MADE GREAT PROGRESS WITH PT AND IS APPROPRIATE FOR DISCHARGE. UPON EXAM TODAY: Motor deficit: DANIS UE STRENGTH GROSSLY 5/5 WITH MMT'ING BUT RIGHT HAND NT AND DEFERRED TO OT. ROM deficit: DANIS SHLD AND ELBOW ROM WFL. Reflexes: NT. Dural Signs: NEGATIVE DANIS UE'S. Cervical Mvmt Loss: Flex: NIL. Pro: NIL. Ext: MOD. Ret: MOD. RSB: MIN. LSB: MOD. R Rot: MIN. L Rot: MIN. PATIENT DENIES ANY INCREASED SX'S WITH CERVICAL ROM TESTING ALL PLANES. Goal 1:: DECREASE C/O HEAD AND NECK PAIN Goal Progress: Goal Met Goal 2:: IMPROVE PERSONAL CARE, READING, DRIVING AND NORMAL ADL FUNCTION Goal Progress: Goal Met Goal 3:: INSTRUCT IN PROPHYLAXIS Goal Progress: Goal Met Plan: D/C TO INDEP EX AT THIS TIME. PATIENT IS AGREEABLE. If there are questions or concerns regarding this patient's physical therapy, please feel free to call me at [phone]. Thank you for the referral of this patient. Sincerely, Corinne Rodriguez PT, Cert MDT
--- NOTE | 2020-04-16 14:35 | HP.OTDCSUM_ITS ---
It has been my pleasure to treat TALHA LIU under orders from Dr. Robert Hernandez MD, for the diagnosis of right CTS for a total of 6 visit(s). Please see the following information for a summary of their discharge status. % Improvement: 80 Objective/Function: right gripn 60#. pt continues to demo with scar hypertrophic-. pt reports IND with ADLs and IADLS Patient Goals: Regain Strength, Decrease Pain, Use Hand/Wrist/Arm Normally Again Goal:: PT will demo a increase in right administrator social welfare strength by 30# to increase pts ind. with ADLs and IADL by dc Goal:: pt will demo a increase in right wrist ROM equal to left by d/c to increase pts ind with ADLs and IADLs by d/c Goal:: PT will report pain no greater than 1/10 with use of right hand with ADLs and IADLs by d/c Goal:: pt will demo understanding of scar mtg and desensitization by end of 2nd visit Goal:: pt will report return to her PLOF with ALDs and IADls by d/c Plan: D/C Discharge Comments: pt seen for 6 OT visits- pt demo good understanding of scar mtg. and use of elastomer for mtg of hypertrophic scar. pt reports she has returned to her PLOF. pt agree to cont with HEP to cont to soften scar. pt d/c at this time If there are questions or concerns regarding this patient's occupational therapy, please fell free to call me at [phone]. Thank you for the referr al of this patient. Sincerely, Roxy Zacarias, OTR/L, CHT
== END 2020-04-16 19:00 | disposition home or self-care (01) ==
LOC: OT 09:30
PROVIDERS: PCP Family Medicine; Referring Provider Neurological Surgery; Visit Provider Neurological Surgery
DX: M47.812 Spondylosis without myelopathy or radiculopathy, cervical region (principal)
CPT/HCPCS: 97035; 97110; 97112; 97140; 97162; 97164; 97166; 97530

== ENCOUNTER → 2020-06-05 06:53 | Outpatient (CLI) | payer OTHER, SELFPAY ==
[2019-11-02 09:43] VITALS: BMI 31.7
--- NOTE | 2020-06-05 06:55 | BI_ITS ---
MAMMOGRAPHY - BILATERAL SCREENING REASON FOR EXAM: Female, 55 years old. Routine annual screening examination. PERTINENT HISTORY: Non-contributory. TECHNIQUE: Digital bilateral breast hollie (3D mammographic acquisition) in the CC and MLO projections. 2-D mediolateral oblique (MLO) and craniocaudad (CC) views of both breasts were obtained. CAD: Full Field Digital Mammography with Computer Added Detection was performed. COMPARISON: Comparison is made with prior study dated 05/31/2019 and 05/30/2018. FINDINGS: Breast Composition: There are scattered areas of fibroglandular density. There are no dominant masses or suspicious calcifications. No other significant abnormalities are identified. There has been no significant change since the prior study. BI/SCREEN MAMM (CAD) W/HOLLIE BILAT IMPRESSION: Stable bilateral screening mammogram. Yearly follow-up mammogram recommended. (A) ASSESSMENT CATEGORY: BIRADS Category 1: Negative. A letter regarding these results will be sent to the patient by the facility within 30 days. Approximately 10% of breast cancers are not detected by mammography. A normal mammogram should not delay biopsy of a clinically suspicious abnormality. [id number] Electronically Signed: Moises Valerio, at 9:24 EST , Service support ,
== END ==
PROVIDERS: PCP Family Medicine; Referring Provider Nurse Practitioner Adult Health; Visit Provider Nurse Practitioner Adult Health
DX: Z12.31 Encounter for screening mammogram for malignant neoplasm of breast (principal)
CPT/HCPCS: 77063; 77067

== ENCOUNTER 2020-06-14 06:58 | Day surgery (SDC) | payer OTHER, SELFPAY ==
--- NOTE | 2020-06-14 07:00 | HP_ITS ---
I have re-examined the patient. There are no clinical changes since date of exam. We discussed the current risk associated COVID-19. While it is understood that there is a community spread of COVID 19 the risk of igor COVID-19 while at [facility] is very low, however, the risk cannot be completely mitigated because of the community spread of the disease. We discussed in detail the risk of exposure to and or potential harm posed by the COVID-19 virus with having a surgery/procedure at this time versus the risk of delaying the surgery/procedure. Is not possible to know either the risk of delaying the surgery procedure or chance of getting an infection with perfect accuracy, but a joint decision was made to proceed at this time with a schedule surgery/procedure as indicated on the consent form. Patient was notified that we will need to comply with any screening or testing [facility] wishes to perform or that surgery may be delayed for any positive results. Intake Intake Visit Reasons: left thumb Accompanied by: Self Is patient in pain?: No Allergies No Known Allergies Allergy (Verified 05/21/20 15:11) Medications armodafinil 200 mg tablet 200 mg PO ONCE 12/28/18 [History Confirmed 05/21/20] ropinirole 0.5 mg tablet 0.5 mg PO QHS #60 tab 06/23/19 [Rx Confirmed 05/21/20] [facility] Medical History (Updated 04/02/20 @ 13:52 by Tessa Somers) RENAY (obstructive sleep apnea) (Chronic) Irritable bowel syndrome (Acute) Arthritis (Acute) Severe headache (Acute) Seasonal allergies (Chronic) Shoulder pain (Acute) Fatigue (Chronic) Carpal tunnel syndrome of right wrist (Acute) fusion (Acute) Surgical History (Updated 04/02/20 @ 13:01 by Tessa Somers) H/O knee surgery (Resolved) H/O: hysterectomy (Resolved) Hx of appendectomy (Resolved) History of tonsillectomy and adenoidectomy (Resolved) gland removed (Resolved) RC and bicep repair (Resolved) History of arthroscopy of left shoulder (Resolved) History of carpal tunnel surgery of right wrist (Acute) H/O: hysterectomy (Inactive) History of tonsillectomy and adenoidectomy (Inactive) Hx of appendectomy (Inactive) S/P left knee arthroscopy (Inactive) bladder sling (Inactive) s/p right shoulder scope (Inactive) Family History (Updated 04/02/20 @ 13:02 by Tessa Somers) Mother Diabetes Heart disease Father Diabetes Hypertension Heart disease Other Arthritis Gout Kidney disease Seizures Social History (Updated 05/21/20 @ 15:[address] 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 Adry Em, 05/21/20 [id number]. TALHA LIU is a 55 year old F here today to sign surgery consent for A1 sara release of her left hand. C/o: Left hand, first metacarpal trigger finger. Onset: mid January, with slight improvement. Patient has had one injection on 04/02/2020, and did not find it helpful. However, her first digit is no longer getting stuck as often. Denies usage of OTC medication for pain relief. Denies usage of tapping and using a brace. Patient finds slight relief with using ice packs and heat applications. Reports some numbness, stiffness and tingling. Last hand x-ray was: 04/02/2020. ROS Musc Reports system reviewed and no additional complaints, except as docu, Denies joint pain, Reports numbness, Reports stiffness, Reports tingling Skin/Breast Denies system reviewed and no additional complaints, except as docu, Denies dry skin, Denies redness, Denies lesions, Denies new lesions, Denies non-healing lesions, Denies itching, Denies rash, Denies skin ulcer, Denies sores, Denies wounds Neuro Yes numbness, Yes tingling Ortho Exam Right Wrist/Hand Skin/Wound: No Swelling Left Wrist/Hand Skin/Wound: No Swelling Contralateral Normal: Yes A1 sara trigger: Yes Left Wrist: Yes ROM-Extension 0-60, Yes ROM-Flexion 0-80, Yes ROM-Pronation 0-80 and Yes ROM-Supination 0-90 Motor: EPL: 5, FDP-2: 5, 1st Dorsal Interosseous: 5, APB: 5 Sensation: Radial: I, Ulnar: I, Median: I Assessment & Plan Problems 1. Trigger thumb of left hand M65.312 Plan Discussed patient may have pillar pain with her right hand from her previous carpal tunnel surgery by a different provider. Advised it is the patient's decision if she would like to proceed with surgery A1 sara release of her left hand. Advised to start taking a Vitamin B Complex for her right hand. Reviewed the pre-operative plans with the patient. Risks and benefits of the procedure were fully explained, including but not limited to infection, neurovascular injury, continued pain, arthritis, stiffness, need for further surgery, re-injury, DVT, PE, general risks of anesthesia, and loss of limb or life. The patient understands all the risks and does wish to proceed with written consent. Patient may return to work the following Wednesday post surgery. All questions answered. Patient in agreement of plan. Follow up two weeks post-op or sooner if pain, swelling, numbness or associated symptoms, or concerns develop. Coding Level of Care Code Off vis,est,level 4 Diagnoses Trigger thumb of left hand M65.312 COVID (Procedure Consent) Procedure Criteria Procedure Criteria: Yes Elective The surgeon/proceduralist and patient have discussed in detail the risk of exposure to and/or potential harm posed by the COVID-19 virus with having a surgery/procedure at this time versus the risk of? delaying the surgery/procedure. It is not possible to know either the risk of delaying the surgery or procedure or chance of getting an infection with perfect accuracy, but a joint decision was made between the patient and the surgeon/proceduralist ?to proceed at this time with the scheduled surgery/procedure as indicated on the consent form.
[2020-06-14 07:18] VITALS: BP 133/92; PULSE 76; RESP 14; TEMP 36.3; O2SAT 98
[2020-06-14] MEDS: Lactated Ringers 1,000 ML 100 ML IV (07:38)
--- NOTE | 2020-06-14 09:19 | DCINST_ITS ---
Discharge Diet: No Restrictions - Keep dressing clean dry and intact, follow-up in 2 weeks, call with concerns Discharge Activity: May Not Drive May shower in (days): 1 Ice area for (Minutes): 20 - Every hour while awake. Weight Bearing Status: Weight bearing as tolerated Keep extremity elevated above heart level: Operative Extremity Call your doctor if your incision/area has: Continuous Slow Oozing, Sudden I ncreased Bleeding, Increased Pain/ Swelling, Increased Redness, Foul Smelling Discharge Call your doctor if you observe: Fever of 101 or Higher, Coldness, Increased Pain, Numbness or Tingling, Change in Color, Calf discomfort Allergies/Adverse Reactions: Allergies No Known Allergies Allergy (Verified 06/06/20 14:09) Medications to take at Discharge armodafinil 200 mg tablet 200 mg PO DAILY 12/28/18 ropinirole 0.5 mg tablet 0.5 mg PO QHS #60 tab 06/23/19 isotretinoin 10 mg capsule 10 mg PO QHS 05/29/20 Celecoxib [Celebrex] 200 mg PO DAILY 06/06/20 Gabapentin 300 mg PO DAILY 06/06/20 Primary Care Physician: Zay Lazar MD [Primary Care Provider] - Test Results: Test results from this visit will be discussed in further detail at your follow- up appointment, if applicable. Please Follow Up With: Adry Em, - [phone]
--- NOTE | 2020-06-14 09:19 | PCM.OPRPT ---
Report of Operation Date of Procedure: 06/14/20 Pre-Operative Diagnosis: Left thumb trigger finger Post-Operative Diagnosis: Same Surgery/Procedure Performed:: left thumb A1 sara release Estimated Blood Loss (mL): min Fluids Replaced: 500cc Description of Procedure: Preoperative note Patient is a 55 year-old female who came into my office with a locked in quite painful left trigger thumb. Due to the fact that it was locking quite painful we decided to operate on releases so she can regain function and decreases her pain. Risks benefits and alternatives surgery discussed with patient. Risks including but not limited to blood loss, blood clot, infection, neurovascular injury, failure procedure, loss of life and loss of limb. Patient is aware would like proceed with left trigger finger thumb release A1 sara release. Operative note Patient seen and examined preoperative holding area. leftt thumb was marked. Patient is brought to the operating room and placed supine on the operating table. Sign, anesthesia, antibiotics were administered. The right arm was prepped and draped in usual sterile fashion after Jennifer block was initiated. We did test the Jennifer block it was not working as we did apply 7 cc of local to the incision site patient was comfortable thereafter. Timeout was performed. We marked out our incision at the A1 sara of the right thumb. We was about a centimeter centimeter and a half for length. We used a 15 blade to cut the skin tenotomies to dissect down to the level of the A1 sara. We then released the A1 sara both proximally and distally we then brought the tendons out of the incision and flex and extend at the DIP of the right thumb to ensure that we had no further locking which we did not have. We then irrigated the incision with copious amounts of sterile saline. Incision was closed with interrupted 4-0 nylon stitches. Tourniquet was deflated for total working time of 10 minutes. Patient tolerated procedure well there are no comp occasions transferred to recovery room in stable condition. Postoperative note Use hand as tolerated but keep incision clean and dry Discussed with family Follow-up in 2 weeks for dressing change and suture removal Hospital pharmacy has prescriptions This note was generated with [employer] software. It may contain incorrect words, spelling, and punctuation that were not noted in checking the note before signing.
[2020-06-14] MEDS: Cefazolin 2 GM in 0.9% Normal Saline 100 ML IV (09:20)
[2020-06-14] MEDS: Mupirocin Ointment 22gm Tube 1 APPLIC (09:53)
[2020-06-14 10:03] VITALS: BP 118/75; BP 133/92; PULSE 66; RESP 16; TEMP 36.1; O2SAT 97
[2020-06-14 10:08] VITALS: BP 122/83; BP 133/92; PULSE 73; RESP 16; O2SAT 98
[2020-06-14 10:10] VITALS: BP 112/81; BP 133/92; PULSE 68; RESP 16; O2SAT 97
[2020-06-14 10:26] VITALS: BP 119/70; BP 133/92; PULSE 70; RESP 16; TEMP 36.3; O2SAT 96
[2020-06-14 11:02] VITALS: BP 133/92
== END 2020-06-14 11:03 | disposition home or self-care (01) ==
LOC: SDC 06:59 → AC 06:59
PROVIDERS: PCP Family Medicine; Referring Provider Orthopaedic Surgery; Visit Provider Orthopaedic Surgery
PROC: (CPT 26055; principal; 2020-06-14 08:40)
DX: M65.312 Trigger thumb, left thumb (principal); G47.33 Obstructive sleep apnea (adult) (pediatric)
CPT/HCPCS: 26055; 87426; C9803; J7120; A4216

== ENCOUNTER 2020-06-25 16:00 | Outpatient (RCR) | payer OTHER, SELFPAY ==
[2019-04-04 05:57] VITALS: BMI 31.6
[2019-06-13 07:57] VITALS: BMI 31.6
--- NOTE | 2019-07-10 10:38 | MASS.EVAL_ITS ---
Massage Therapy Evaluation: Initial Evaluation Date: 07/04/2019 SUBJECTIVE: Caron is a 54 year old female who was referred to the [facility] for a massotherapy evaluation by Dr. Lazar with the diagnosis of muscle cramping. She presents today with the symptoms of pain, stiffness and tension in the neck, mid back and low back. Caron reports having a past medical history of pain and tension in her neck, shoulders and low back related to her posture and stress. She reports having minimal improvement with exercise and stretching. OBJECTIVE: Upon observation Caron has some posture issues with her head and shoulders forward from the neutral position in sitting and standing. After examination and palpation, I found Caron to have high muscle tension with tenderness and myofascial restrictions in her sub occipitals, levator scapulae, trapezius, rhomboids, scalenes, and thoracic paraspinals. Her QL?s, lumbar paraspinals, piriformis, glute medius and minimus all were very tight with fascial restrictions, tender points and trigger points. The first treatment consisted of a one hour massage to her upper body with myofascial release, muscle stripping, trigger point compression techniques, and cervical manual traction. ASSESSMENT: I feel that Caron is a good candidate for massotherapy at this time. She had a favorable response to the first treatment with reduction in her muscle aches, pain and tension. She also had improvement in her cervical flexibility and low back flexibility. PLAN: The plan of care was reviewed with the patient. The patient is to be seen on an as needed basis for a total of ten sessions with the recommendation of once every month for a one hour treatment.
[2020-04-02 12:59] VITALS: BMI 28.3
--- NOTE | 2020-06-27 14:27 | MASS.DISCH ---
Massage Therapy Discharge Summary: Discharge Date: 06/27/2020 Caron was seen for a massotherapy evaluation on 07/04/2019 with the diagnosis of muscle cramping. She was treated with ten sessions of massage therapy consisting of deep pressure soft tissue techniques, myofascial release and trigger point compression to her cervical, thoracic, lower back, lower extremities and hips. Caron responded well to the therapy by reporting decreased tension and pain throughout her neck, shoulders, lower back and hips. Her goals for therapy were met throughout the treatment sessions. At this time this patient is being discharged from our care at [facility] facility.
== END 2020-06-25 19:00 | disposition home or self-care (01) ==
LOC: MASS 16:00
PROVIDERS: Family Provider Family Medicine; PCP Family Medicine; Referring Provider Family Medicine; Visit Provider Family Medicine
DX: R25.2 Cramp and spasm (principal)
CPT/HCPCS: 97124

== ENCOUNTER → 2020-07-19 07:08 | Outpatient (CLI) | payer OTHER, SELFPAY ==
[2020-07-19 07:58] LABS: AST(SGOT) 15 U/L (15-37); Alanine Aminotransfer ALT/SGPT 22 U/L (13-56); Albumin, Serum 3.6 g/dL (3.2-5.0); Alkaline Phosphatase 125 U/L (45-117); Anion Gap 3 (5-15); BUN 13 mg/dL (7-18); BUN/Creat Ratio 13.8 RATIO (10-20); Calcium,Total 9.1 mg/dL (8.5-10.1); Chloride 107 mmol/L (98-107); Cholesterol 226 mg/dL (200); Creatinine, Serum 0.94 mg/dL (0.55-1.02); EST Glomerular Filtration Rate 65 mL/min (>60); Est Glom Filt Rate - Afr Amer 79 mL/min (>60); Globulin 3.5 g/dL (2.2-4.2); Glucose 108 mg/dL (74-106); High Density Lipoprotein 50 mg/dL; Potassium 4.5 mmol/L (3.5-5.1); Protein, Total 7.1 g/dL (6.4-8.2); Sodium Level 139 mmol/L (136-145); Triglycerides 187 mg/dL; Very Low Density Lipoprotein 37 mg/dL (5-40)
== END ==
PROVIDERS: PCP Family Medicine; Referring Provider Physician Assistant Medical; Visit Provider Physician Assistant Medical
DX: L70.0 Acne vulgaris (principal); Z79.899 Other long term (current) drug therapy
CPT/HCPCS: 36415; 80053; 80061

== ENCOUNTER → 2020-07-24 11:09 | Outpatient (CLI) | payer OTHER, SELFPAY ==
--- NOTE | 2020-07-24 11:15 | RAD_ITS ---
STUDY: X-RAY - CERVICAL SPINE REASON FOR EXAM: Female, 55 years old. C4-C7 follow up, surgery was in January, patient has no complaints TECHNIQUE: 3 view(s) of the cervical spine were obtained. COMPARISON: Comparison is made with prior study dated 12/01/2019. FINDINGS: Normal anterior atlantoaxial articulation. Normal odontoid process. There is straightening of the normal cervical lordosis. The patient is status post anterior fusion and disc spacer placement at the C4-C5, C5-C6 and C6-C7 levels. Normal visualized intervertebral neuroforamina. The soft tissue structures are unremarkable. RAD/Cerv Spine 2 or 3 Views IMPRESSION: Status post anterior fusion and disc spacers placed at the C4-C5, C5-C6 and C6-C7 levels. Straightening of the normal cervical lordosis. Electronically Signed: Moises Valerio MD at 13:23 EST , Service support ,
== END ==
PROVIDERS: PCP Family Medicine; Referring Provider Neurological Surgery; Visit Provider Neurological Surgery
DX: M47.812 Spondylosis without myelopathy or radiculopathy, cervical region (principal)
CPT/HCPCS: 72040

== ENCOUNTER → 2020-11-15 08:43 | Outpatient (CLI) | payer OTHER, SELFPAY ==
[2020-11-15 10:32] LABS: Anion Gap 4 (5-15); BUN 16 mg/dL (7-18); BUN/Creat Ratio 17.4 RATIO (10-20); Calcium,Total 8.5 mg/dL (8.5-10.1); Chloride 109 mmol/L (98-107); Cholesterol 211 mg/dL (200); Creatinine, Serum 0.92 mg/dL (0.55-1.02); EST Glomerular Filtration Rate 67 mL/min (>60); Est Glom Filt Rate - Afr Amer 81 mL/min (>60); Glucose 118 mg/dL (74-106); High Density Lipoprotein 50 mg/dL; Potassium 4.2 mmol/L (3.5-5.1); Sodium Level 140 mmol/L (136-145); Triglycerides 163 mg/dL; Very Low Density Lipoprotein 33 mg/dL (5-40)
== END ==
PROVIDERS: PCP Family Medicine; Referring Provider Family Medicine; Visit Provider Family Medicine
DX: R73.9 Hyperglycemia, unspecified (principal)
CPT/HCPCS: 36415; 80048; 80061

== ENCOUNTER → 2020-11-21 20:02 | Outpatient (CLI) | payer OTHER, SELFPAY | PROVIDERS: PCP Family Medicine; Referring Provider Family Medicine; Visit Provider Family Medicine | DX: G47.33 Obstructive sleep apnea (adult) (pediatric) (principal) | CPT/HCPCS: 95811 ==

== ENCOUNTER → 2020-12-02 14:37 | Outpatient (CLI) | payer OTHER, SELFPAY ==
--- NOTE | 2020-12-02 14:40 | RAD_ITS ---
STUDY: X-RAY - LEFT HAND REASON FOR EXAM: Female, 55 years old. FALL, PAIN TECHNIQUE: 3 view(s) of the hand. COMPARISON: None. FINDINGS: Normal radiocarpal articulation. Normal distal radioulnar joint. Normal visualized carpal bones. Normal carpal articulations Normal carpometacarpal articulation of the thumb. Normal second through fifth carpometacarpal joints. Nondisplaced transverse fracture at the base of the fifth metacarpal with overlying soft tissue swelling. Normal metacarpophalangeal joint of the thumb. Normal interphalangeal joint of the thumb. Normal proximal and distal phalanges of the thumb. Normal metacarpophalangeal joints of the second through fifth fingers. Normal proximal and distal interphalangeal joints of the second through fifth fingers. Normal phalanges of the second through fifth fingers. Soft tissue swelling. RAD/Hand Min 3 Views IMPRESSION: Nondisplaced transverse fracture at the base of the fifth metacarpal with overlying soft tissue swelling. Electronically Signed: Moises Valerio MD at 14:58 EDT , Service support ,
--- NOTE | 2020-12-02 14:40 | RAD_ITS ---
STUDY: X-RAY - LEFT WRIST REASON FOR EXAM: Female, 55 years old. FALL, PAIN TECHNIQUE: 3 view(s) of the wrist were obtained. COMPARISON: None. FINDINGS: Nondisplaced fracture at the base of the fifth metacarpal. Normal visualized distal radius and ulna. Normal radiocarpal articulation. Normal distal radioulnar articulation. Normal carpal bones. Normal carpal articulations. Normal carpometacarpal articulation of the thumb. Normal second through fifth carpometacarpal articulations. Normal visualized metacarpal bones. Soft tissue swelling. RAD/Wrist min 3 Views IMPRESSION: Soft tissue swelling. Nondisplaced fracture at the base of the fifth metacarpal. Electronically Signed: Moises Valerio MD at 14:57 EDT , Service support ,
== END ==
PROVIDERS: PCP Family Medicine; Referring Provider Nurse Practitioner Family; Visit Provider Nurse Practitioner Family
DX: M79.642 Pain in left hand (principal)
CPT/HCPCS: 73110; 73130

== ENCOUNTER → 2020-12-13 10:04 | Outpatient (CLI) | payer OTHER, SELFPAY ==
--- NOTE | 2020-12-13 10:40 | RAD_ITS ---
STUDY: X-RAY - CERVICAL SPINE REASON FOR EXAM: Female, 55 years old. CERVICAL SPONDYLOSIS TECHNIQUE: 3 view(s) of the cervical spine were obtained. COMPARISON: Comparison is made with prior study dated 07/24/2020. FINDINGS: Normal anterior atlantoaxial articulation. Normal odontoid process. There is straightening of the normal cervical lordosis. Once again, the patient is status post anterior fusion and disc spacer placement at the C4-C5, C5-6 and C6-C7 levels. This is unchanged. Normal disc space heights. Normal visualized intervertebral neuroforamina. The soft tissue structures are unremarkable. RAD/Cerv Spine 2 or 3 Views IMPRESSION: Stable examination. The patient is status post anterior fusion and disc spacers placement at the C4-C5, C5-6 and C6-C7 levels. Electronically Signed: Moises Valerio MD at 14:13 EDT , Service support ,
== END ==
PROVIDERS: PCP Family Medicine; Referring Provider Neurological Surgery; Visit Provider Neurological Surgery
DX: M47.812 Spondylosis without myelopathy or radiculopathy, cervical region (principal)
CPT/HCPCS: 72040

== ENCOUNTER → 2020-12-25 12:57 | Outpatient (CLI) | payer OTHER, SELFPAY ==
--- NOTE | 2020-12-25 12:59 | RAD_ITS ---
STUDY: X-RAY - RIGHT KNEE REASON FOR EXAM: Female, 55 years old. KNEE PAIN TECHNIQUE: 3 view(s) of the knee. COMPARISON: None. FINDINGS: Normal visualized distal femur. Normal visualized proximal tibia and fibula. Normal proximal tibiofibular articulation. There is no demonstrated fracture. Normal medial femorotibial compartment. Normal lateral femorotibial compartment. Normal patellofemoral articulation. There is no demonstrated joint effusion. The soft tissue structures are unremarkable. RAD/Knee 3 Views IMPRESSION: Normal x-ray examination of the knee. Electronically Signed: Romario Martinez MD at 0:00 EDT , Service support ,
== END ==
PROVIDERS: PCP Family Medicine; Referring Provider Family Medicine; Visit Provider Family Medicine
DX: M25.561 Pain in right knee (principal)
CPT/HCPCS: 73562

== ENCOUNTER 2021-01-09 16:17 | Outpatient (RCR) | payer OTHER, SELFPAY ==
--- NOTE | 2021-01-09 17:21 | HP.PTEVAL_ITS ---
Patient's Visit Information TALHA LIU is a 55 year old F referred to Physical Therapy by Dr. Zay Lazar MD with a diagnosis of R knee pain. Date of Evaluation: 01/09/21 Physical Therapist: Tha Dubose, PT, ATC - Visit Plan Frequency: 2-3x /Week Duration: 4-6 Weeks Plan: R LE stretching and strengthening, core stab ex's, balance and proprio, bike, and HEP - Subjective Pt reports her R knee has been sore for over 2 mos. Pt reports she was in [place] when she was waling up stairs and her R knee gave out on her. Pt reports her knee was very swollen and she couldnt bend her knee. Pt reports she has had an xray which showed everything was fine. Pt reports she tore her L knee meniscus a long time ago and believes this pain feels the same as that one did. Pt reports her R knee will ock up on her on occasion which results in immediate pain and swelling. Pt reports she gets tingling and numbness in the posterior aspect of her R knee. Pt reports she is an avid walker, and notes she cant walk as far as she usually does due to pain. Pt has stairs at home and has to negotiate them one step at a time. Pt reports knee still intermittently gives out. 3/10 pain at rest, 5/10 pain at worst - Pain R knee pain Pain Intensity (Out of 10): 3 Pain Intensity Range: 5 - Objective Neuro: B LE sensation is WNL to light touch. B achilles reflex= 2/3. Palpation: Mild tenderness on medial compartment of the R knee. No obvious deformity at this time. ROM: L knee 0-120 degrees. R knee 0-8-100. MMT: L knee 5/5 throughout. R knee 4-/5 and painful. Special tests: Pos apley compression test - Goals Goal 1:: Decrease R knee pain x 50% to aid with sleep Goal Time Frame: 4-6 Weeks Goal 2:: Increase R knee ROM x 20 degrees to aid with pt being able to squat Goal Time Frame: 4-6 Weeks Goal 3:: Increase R knee strength x 1 grade to aid with stair negotiation Goal Time Frame: 4-6 Weeks Goal 4:: I with HEP Goal Time Frame: 4-6 Weeks - Rehabilitation Potential Physical Therapy Diagnosis: Pt has R knee pain, weakness, and limited ROM secondary to Patello-femoral dysfunction Rehabilitation Potential: Good - Anticipated Interventions Patient/Client Instruction: Educate patient on: Condition, Plan of Care For the Purpose of:: To improve self management Therapeutic Exercise to Include: Strength training, Endurance training, Balance training, Flexibilty training, Gait and locomotor training, Active ROM, Dynamic Lumbar Stabilization For the Purpose of:: To decrease pain, To increase ROM, To improve muscle performance and motor function Cryotherapy (ice pack, ice massage): Yes For the Purpose of:: To decrease pain Thank you for the opportunity to evaluate your patient. For Medicare and Medicare HMO plans, please review the plan of care and approve it. It will need to be FAXED BACK to us at [phone] for Medicare purposes. For Medicare only, by signing this I certify the plan of care. Please let me know if there are questions or concerns regarding this plan of care. Physician Signature: Dat e:
--- NOTE | 2021-04-23 14:25 | HP.PT.NRP ---
TALHA LIU was seen in my office for initial evaluation on 01/09/21. The following Plan of Care was established for this patient: Initial Frequency: 2-3x /Week Initial Duration: 4-6 Weeks Patient/Client Instruction: Educate patient on: Condition, Plan of Care For the Purpose of:: To improve self management Therapeutic Exercise to Include: Strength training, Endurance training, Balance training, Flexibilty training, Gait and locomotor training, Active ROM, Dynamic Lumbar Stabilization For the Purpose of:: To decrease pain, To increase ROM, To improve muscle performance and motor function Cryotherapy (ice pack, ice massage): Yes For the Purpose of:: To decrease pain This patient was last seen in our office . Pertinent comments regarding their Physical therapy will appear below: Pt was treated for 1 PT visit for R knee pain through the date of 02/17/21. Pt has not returned through todays date and is discontinued at this time. At this point I will be discontinuing this patient from physical therapy. I would be happy to see this patient again in the future if found appropriate by the physician. Thank you! Tha Dubose, PT, ATC Balance/Gait/Functional tests - Balance/Special Test Scores Lower Extremity Functional Score: 49
== END 2021-01-09 19:00 | disposition home or self-care (01) ==
LOC: PT 16:17
PROVIDERS: PCP Family Medicine; Referring Provider Family Medicine; Visit Provider Family Medicine
DX: M25.561 Pain in right knee (principal)
CPT/HCPCS: 97110; 97161

== ENCOUNTER 2021-02-19 08:02 | Outpatient (RCR) | payer OTHER, SELFPAY ==
--- NOTE | 2021-02-19 14:24 | HP.OTEVAL_ITS ---
Patient's Visit Information TALHA LIU is a 55 year old F, referred to Occupational Therapy by SINGH STEVENSON, with a diagnosis of Closed displaced fx of base of 5th metacarpal bone of L hand. Date of Evaluation: 02/19/21 Occupational Therapist: Roxy Zacarias, HOMERO/Joby, CHT - Subjective This 55/F was seen for initial OT eval today following a fx of her 5th metacarpal bone on December 01, 2020. She was seen at the [facility] and was splinted for 6 weeks to heal. 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 She loves to bake in her spare time and spend time with her 2m old grandson. She is R handed, but has tried to use her L hand as normally as she would before the accident. Her ADLs and IADLs are going well, and the only instance that there is pain is when she weight bears on it. pt states she would like to know if she is doing ok on her own. She reported numbness in her pinky, but it has gotten better. pt states she came because she was helping her push a car and she felt a pop-like cracking her knuckles- pt was worried she did something to her hand- denies increase pain or swelling in her hand following. - Pain L hand/wrist 2 Pain Intensity Range: 3, 5 - ROM Wrist: R: 45*/50*, L: 45*/30* Opposition: 10 ROM Comments: pt demo the ability to form composite fist without difficutly - Strength Software Reliability Engineer: R: 87#, L: 42# Lateral Pinch: R: 19#, L: 10#* Tripod Pinch: R: 18#, L: 12# Strength Comments: Pt indicated pain with L lateral pinch. - Sensation Thumb: right 2.83 left 2.83 Index: right 2.83 left 2.83 Middle: right 2.83 left 2.83 Ring: right 2.83 left 2.83 Little: right 2.83 left 2.83 - Quick DASH-Disab of Arm,Shoulder& Hand Quick DASH Score: 18.3325 - Rehabilitation General Assessment: Pt demonstrated a decrease in L lithographic stripper strength, decreased pinch strength, and decreased ROM. This does not limit her ADls or work tasks- At this time, pt does not required skilled OT services. PT was ed. on ROM and what to expect with as her strength returns and her discomfort with use as helping her pushing a car or heavy work activities. If things change, pt juanita schedule follow up. Pt agrees to HEP and understand POC. Therapy session was directly supervised and doc. approved by Roxy Zacarias OTR/L,CHT Rehabilitation Potential: Good - Anticipated Interventions A/AAROM/PROM, Strengthening, Home Program - Visit Plan General Plan: pt will initiate a ROM and PRE as instructed. TEXT: Thank you for the opportunity to evaluate your patient. For Medicare and Medicare HMO plans, please review the plan of care and approve it. It will need to be FAXED BACK to us at [phone] for Medicare purposes. Please let me know if there are questions or concerns regarding this plan of care. Physician Signature: Date:
--- NOTE | 2021-07-03 13:45 | HP.OT.NRP ---
TALHA LIU was seen in my office for initial evaluation on 02/19/21. The following Plan of Care was established for this patient: pt was seen for initial eval only- Due to time lapse in services pt d/c. Anticipated Interventions: A/AAROM/PROM, Strengthening, Home Program This patient was last seen in our office . Pertinent comments regarding their Occupational therapy will appear below: At this point I will be discontinuing this patient from occupational therapy. I would be happy to see this patient again in the future if found appropriate by the physician. Thank you! Roxy Zacarias, OTR/L, CHT
== END 2021-02-19 19:00 | disposition home or self-care (01) ==
LOC: OT 08:02
PROVIDERS: PCP Family Medicine
DX: S62.317D Displaced fracture of base of fifth metacarpal bone, left hand, subsequent encounter for fracture with routine healing (principal); X58.XXXD Exposure to other specified factors, subsequent encounter
CPT/HCPCS: 97035; 97140; 97165

== ENCOUNTER 2021-06-12 15:45 | Outpatient (RCR) | payer OTHER, SELFPAY ==
[2020-04-02 12:59] VITALS: BMI 28.3
--- NOTE | 2020-07-09 18:57 | MASS.EVAL ---
Massage Therapy Evaluation: Initial Evaluation Date: 07/09/2020 SUBJECTIVE: Caron is a 55 year old female who was referred to the [facility] facility for a massotherapy evaluation by Dr. Gonzáles with the diagnosis of degenerative disc disease. She presents today with the symptoms of pain, stiffness and tension in the neck, mid back, low back and hips. Caron reports having a past medical history arthritis and chronic pain in her neck and back. She reports having minimal improvement with exercise and stretching over the last few months. OBJECTIVE: Upon observation Caron has some posture issues with her head and shoulders forward from the neutral position in sitting and standing. After examination and palpation, I found Caron to have high muscle tension with tenderness and myofascial restrictions in her sub occipitals, levator scapulae, trapezius, rhomboids, scalenes, and thoracic paraspinals. Her QL?s, lumbar paraspinals, piriformis, glute medius and minimus all were very tight with fascial restrictions, tender points and trigger points. The first treatment consisted of a one hour massage to her upper body with myofascial release, muscle stripping, trigger point compression techniques, and cervical manual traction. ASSESSMENT: I feel that Caron is a good candidate for massotherapy at this time. She had a favorable response to the first treatment with reduction in her muscle aches, pain and tension. She also had improvement in her cervical flexibility and low back flexibility. PLAN: The plan of care was reviewed with the patient. The patient is to be seen on an as needed basis for a total of ten sessions with the recommendation of once every month for a one hour treatment.
--- NOTE | 2021-06-12 18:39 | DS.PCM_ITS ---
Massage Therapy Discharge Summary: Discharge Date: 06/12/2021 Caron was seen for a massotherapy evaluation on 07/09/2020 with the diagnosis of degenerative disc disease. She was treated with seven sessions of massage therapy consisting of deep pressure soft tissue techniques, myofascial release and trigger point compression to his cervical, thoracic, lower back and hips. Caron responded well to the therapy by reporting decreased tension and pain throughout her neck, shoulders, lower back, lower extremities and hips. Her goals for therapy were met throughout the treatment sessions. At this time this patient is being discharged from our care at [facility] facility.
== END 2021-06-12 19:00 | disposition home or self-care (01) ==
LOC: MASS 15:45
PROVIDERS: PCP Family Medicine; Referring Provider Family Medicine; Visit Provider Family Medicine
DX: M47.812 Spondylosis without myelopathy or radiculopathy, cervical region (principal)
CPT/HCPCS: 97124

== ENCOUNTER → 2021-06-25 15:29 | Outpatient (CLI) | payer OTHER, SELFPAY ==
--- NOTE | 2021-06-25 15:30 | BI_ITS ---
MAMMOGRAPHY - BILATERAL SCREENING 3-D TOMOSYNTHESIS REASON FOR EXAM: Female, 56 years old. screening PERTINENT HISTORY: No significant family history. TECHNIQUE: 2-D mammograms and 3-D Tomosynthesis of the breast (s) were performed. CAD was performed. COMPARISON: 06/05/2020 FINDINGS: The breast composition is composed of scattered fibroglandular density. Scattered benign calcifications are seen. No dense spiculated masses or suspicious microcalcifications are identified. No architectural distortion is identified. There is no skin thickening or retraction. There has been no significant change since the prior study. BI/SCRN MAMM (CAD)W/HOLLIE BILAT IMPRESSION: No mammographic signs of malignancy. Routine yearly mammograms recommended. ASSESSMENT CATEGORY: BIRADS Category 1: Negative. A letter regarding these results will be sent to the patient by the facility within 30 days. FOLLOW UP RECOMMENDATION: Yearly follow up mammogram recommended. (A) Approximately 10% of breast cancers are not detected by mammography. A normal mammogram should not delay biopsy of a clinically suspicious abnormality. Electronically Signed: Ranjith Gonzalez MD at 16:09 EST Tel , Service support ,
== END ==
PROVIDERS: PCP Family Medicine; Referring Provider Family Medicine; Visit Provider Family Medicine
DX: Z12.31 Encounter for screening mammogram for malignant neoplasm of breast (principal)
CPT/HCPCS: 77063; 77067

== ENCOUNTER → 2021-12-31 | Outpatient (CLI) | payer OTHER, SELFPAY ==
--- NOTE | 2021-12-31 16:10 | RAD_ITS ---
STUDY: X-RAY CHEST REASON FOR EXAM: Female, 56 years old. cough TECHNIQUE: XR Chest 2 Views COMPARISON: 2.1420 FINDINGS: There is no demonstrated pleural abnormality. Cervical spine fusion hardware noted. Normal size heart. Normal mediastinum and marta. Normal visualized pulmonary arteries. Normal visualized aortic arch and descending thoracic aorta. There are diffuse degenerative changes of the visualized thoracic spine. There is degenerative osteoarthritis of the bilateral shoulders. There is no demonstrated abnormality of the visualized soft tissue structures of the upper abdomen. RAD/Chest PA and Lateral IMPRESSION: There are no acute findings. Electronically Signed: Tha Cheng MD at 16:44 EDT ,
== END | disposition home or self-care (01) ==
LOC: MTRAD 16:09
PROVIDERS: PCP Family Medicine; Referring Provider Physician Assistant; Visit Provider Physician Assistant
DX: M19.012 Primary osteoarthritis, left shoulder (principal); M19.011 Primary osteoarthritis, right shoulder; R05.9 Cough, unspecified
CPT/HCPCS: 71046

== ENCOUNTER → 2022-04-08 | Outpatient (CLI) | payer OTHER, SELFPAY ==
--- NOTE | 2022-04-08 08:53 | RAD_ITS ---
HISTORY: back pain. TECHNIQUE: XR Spine Lumbar 2 or 3 Views. COMPARISON: 12/01/2016. FINDINGS: VERTEBRAE: Vertebral body heights preserved. Degenerative osteophytes at multiple levels. Degenerative changes of the posterior elements. ALIGNMENT: No significant anterior or posterior subluxation. INTERVERTEBRAL DISCS: Intervertebral disc space narrowing with endplate changes most prominent at L4-5, progressed from prior. RAD/Lumbar Spine 2 or 3 Views IMPRESSION: No acute fracture or dislocation identified in the lumbar spine. Degenerative change. Electronically Signed: Jayda Jarrett MD at 9:11 EDT ,
== END | disposition home or self-care (01) ==
LOC: MTRAD 08:52
PROVIDERS: PCP Family Medicine; Referring Provider Physician Assistant; Visit Provider Physician Assistant
DX: M54.50 Low back pain, unspecified (principal)
CPT/HCPCS: 72100

== ENCOUNTER → 2022-06-26 | Outpatient (CLI) | payer OTHER, SELFPAY ==
--- NOTE | 2022-06-26 06:42 | MRI_ITS ---
STUDY: MRI LUMBAR SPINE WITHOUT CONTRAST REASON FOR EXAM: Female, 57 years old. Low back pain. TECHNIQUE: Standardized fat and water weighted pulse sequences were obtained in the sagittal and axial planes. COMPARISON: Lumbar spine radiographs 04/08/2022. FINDINGS: T10-T11: (Sagittal only). Normal endplates. Normal disc height. Mild ventral extradural defect due to small posterior bulging annulus. Normal central canal and included portions of the bilateral intervertebral neural foramina. T11-T12: (Sagittal only). Normal endplates. Normal disc height, hydration and morphology. Normal central canal and bilateral intervertebral neural foramina. T12-L1: (Sagittal only). Normal endplates. Minimal disc space height narrowing. Mild ventral extradural defect due to posterior bulging annulus. Normal central canal and bilateral intervertebral neural foramina. Normal lumbar lordosis. There is no substantial scoliosis. Normal conus medullaris that terminates at the upper L1 vertebral body level. L1-2: Normal endplates. Normal disc height. Mild ventral extradural defect due to small posterior bulging annulus. Normal facet joints. Normal central canal and bilateral lateral recesses. Normal bilateral intervertebral neural foramina. L2-3: Normal endplates. Minimal disc space height narrowing. Mild ventral extradural defect due to posterior bulging annulus. Normal facet joints. Prominent dorsal epidural lipomatosis. Normal central canal and bilateral lateral recesses. Normal bilateral intervertebral neural foramina. L3-4: Normal endplates. Minimal disc space height narrowing. Mild ventral extradural defect due to small posterior bulging annulus. Normal facet joints. Prominent dorsal epidural lipomatosis. Moderate central canal stenosis with an AP canal diameter of 7 mm secondary to developmentally short pedicles and prominent dorsal epidural lipomatosis. Normal bilateral lateral recesses. Normal bilateral intervertebral neural foramina. L4-5: Mild irregularity of the vertebral endplates towards the right side with Modic type II degenerative vertebral marrow fat infiltration underneath the right side of the vertebral endplates. Prominent right far lateral ventral extradural defect at the pedicular level foraminal zone due to bone spur. Mild asymmetric degenerative facet arthropathy. Mild central canal stenosis with an AP canal diameter of 9 mm. Normal bilateral lateral recesses. Normal left intervertebral neural foramen. L5-S1: Normal endplates. Mild disc space height narrowing. Normal disc hydration and morphology. Normal tapered termination of the thecal sac of the upper S1 body level. Moderate left degenerative facet arthropathy. Mild right degenerative facet arthropathy. Tapering thecal sac surrounded by epidural lipomatosis. Normal bilateral lateral recesses. Normal bilateral intervertebral neural foramen. Normal visualized sacral ala. Normal visualized paraspinous soft tissue structures. MRI/Spine Lumbar (Routine) IMPRESSION: 1. Moderate central canal stenosis at L3-L4 disc space level with an AP canal diameter of 7 mm secondary to small posterior bulging annulus, developmentally short pedicles and prominent dorsal epidural lipomatosis. 2. Mild stenosis of the right L4-L5 intervertebral neural foramen due to pedicular level foraminal zone bone spur causing the ventral extradural defect and mild central canal stenosis with an AP canal diameter of 9 mm. 3. Moderate left L5-S1 degenerative facet arthropathy and mild right L5-S1 degenerative facet arthropathy. 4. Small posterior bulging annulus at L1-L2 and L2-L3 disc space levels. 5. No MRI evidence of lumbar extruded disc fragment. Electronically Signed: Christoph St MD at 8:42 EST ,
== END | disposition home or self-care (01) ==
LOC: MRI 06:42
PROVIDERS: PCP Family Medicine; Referring Provider Orthopaedic Surgery; Visit Provider Orthopaedic Surgery
DX: M51.26 Other intervertebral disc displacement, lumbar region (principal)
CPT/HCPCS: 72148

== ENCOUNTER → 2022-07-01 | Outpatient (CLI) | payer OTHER, SELFPAY ==
--- NOTE | 2022-07-01 09:42 | BI_ITS ---
MAMMOGRAPHY - BILATERAL SCREENING REASON FOR EXAM: Female, 57 years old. Routine annual screening examination. PERTINENT HISTORY: Non-contributory. TECHNIQUE: Digital bilateral breast hollie (3D mammographic acquisition) in the CC and MLO projections. 2-D mediolateral oblique (MLO) and craniocaudad (CC) views of both breasts were obtained. CAD: Full Field Digital Mammography with Computer Added Detection was performed. COMPARISON: Comparison is made with prior study dated 06/25/2021 and 06/05/2020. FINDINGS: Breast Composition: There are scattered areas of fibroglandular density. There are no dominant masses or suspicious calcifications. No other significant abnormalities are identified. There has been no significant change since the prior study. BI/SCRN MAMM (CAD)W/HOLLIE BILAT IMPRESSION: Stable bilateral screening mammogram. Yearly follow-up mammogram recommended. (A) ASSESSMENT CATEGORY: BIRADS Category 1: Negative. A letter regarding these results will be sent to the patient by the facility within 30 days. Approximately 10% of breast cancers are not detected by mammography. A normal mammogram should not delay biopsy of a clinically suspicious abnormality. [id number] Electronically Signed: Moises Valerio MD at 10:54 EST ,
--- NOTE | 2022-07-01 09:57 | BD_ITS ---
STUDY: DUAL ENERGY X-RAY ABSORPTIOMETRY / DXA REASON FOR EXAM: Female, 57 years old. [id number] TECHNIQUE: Bone Mineral Density (BMD) measurements of lumbar spine and bilateral hips were obtained. COMPARISON: Comparison is made with prior study 05/19/2016. FINDINGS: Lumbar Spine (L1-L4): g/cm2 (0.904) / T-score (-1.3) / Z-score (0.1) Findings are suggestive of osteopenia with a low fracture risk. Left Femur Total: g/cm2 (0.832) / T-score (-0.9) / Z-score (0.0) Left Femoral Neck: g/cm2 (0.664) / T-score (-1.7) / Z-score (-0.4) Right Femur Total: g/cm2 (0.864) / T-score (-0.6) / Z-score (0.3) Right Femoral Neck: g/cm2 (0.708) / T-score (-1.3) / Z-score (0.0) The T-Scores on the most recent prior examination were: Lumbar Spine (L1-L4): There has been worsening of bone density since the previous examination. Left Femur Total: which represents an improvement of 1.3%. Right Femur Total: which represents a worsening of 2.2%. BD/Dexa Bone Density Study IMPRESSION: The patient is considered osteopenic as outlined below according to World [employer]ine Organization (WHO) criteria with a moderate fracture risk. There has been worsening of bone density since the previous examination. Reference Information: The T-score is the number of standard deviations above or below the standard which is normal for young adults at their peak bone mineral density. The World Health Organization (WHO) interprets the T-scores as follows: Above -1 Normal bone density Between -1 and -2.5 Osteopenia Equal to / or below -2.5 Osteoporosis As a practical clinical guideline, osteopenia may be graded as follows: Mild -1 through -1.5 Moderate -1.6 through -2.0 Severe -2.1 through -2.4 The Z-score is the number of standard deviations above or below age-matched controls. A Z-score of less than -1.5 would be considered abnormal. References: 1. NIH Osteoporosis and Related Bone Diseases www osteo.org 2. International Society for Clinical Densitometry www iscd.org 3. National Osteoporosis Foundation www nof.org Electronically Signed: Moises Valerio MD at 12:45 EST ,
== END | disposition home or self-care (01) ==
PROVIDERS: PCP Family Medicine; Referring Provider Family Medicine; Visit Provider Family Medicine
DX: Z00.00 Encounter for general adult medical examination without abnormal findings (principal); Z12.31 Encounter for screening mammogram for malignant neoplasm of breast; M85.80 Other specified disorders of bone density and structure, unspecified site; Z78.0 Asymptomatic menopausal state
CPT/HCPCS: 77063; 77067; 77080

== ENCOUNTER → 2022-08-05 | Outpatient (CLI) | payer OTHER, SELFPAY | END | disposition home or self-care (01) | LOC: SL 20:07 | PROVIDERS: PCP Family Medicine; Referring Provider Internal Medicine Pulmonary Disease; Visit Provider Internal Medicine Pulmonary Disease | DX: G47.33 Obstructive sleep apnea (adult) (pediatric) (principal); G47.10 Hypersomnia, unspecified | CPT/HCPCS: 95811 ==

== ENCOUNTER → 2022-08-06 | Outpatient (CLI) | payer OTHER, SELFPAY ==
[2022-08-06 11:12] LABS: Amphetamine Urine VISTA NEGATIVE (<1000 ng/mL); Barbiturate Urine VISTA NEGATIVE (< 200 ng/mL); Benzodiazepine Urine VISTA NEGATIVE (< 200 ng/mL); Cocaine Urine VISTA NEGATIVE (< 300 ng/mL); Ecstacy Urine VISTA NEGATIVE (< 500 ng/mL); Methadone Urine VISTA NEGATIVE (< 300 ng/mL); PCP Urine VISTA NEGATIVE (< 25 ng/mL); THC Urine VISTA NEGATIVE (< 50 ng/mL); Vista UDS pH Range 7
== END | disposition home or self-care (01) ==
LOC: SL 06:03
PROVIDERS: PCP Family Medicine; Referring Provider Internal Medicine Pulmonary Disease; Visit Provider Internal Medicine Pulmonary Disease
DX: G47.10 Hypersomnia, unspecified (principal)
CPT/HCPCS: 80307; 95805

== ENCOUNTER 2022-09-14 11:14 | Day surgery (SDC) | payer OTHER, SELFPAY ==
[2022-09-14] VITALS (7 sets, daily range): BP systolic 106–146; BP diastolic 71–89; PULSE 82–92; RESP 16; TEMP 36.6–37.1; O2SAT 16–98; BMI 32.6
[2022-09-14] MEDS: Lactated Ringers 1,000 ML 15 ML IV (11:40)
--- NOTE | 2022-09-14 11:44 | RAD_ITS ---
PROCEDURE: Caudal block. DATE OF EXAMINATION: September 14, 2022. INDICATION: Female, 57 years old. Low back pain. FLUOROSCOPY TIME (if supplied): (3.2 seconds) minutes/seconds. 2 images were submitted. RADIATION DOSAGE (If Supplied By Facility): ( 1.54 ) mGycm RAD/Fluoro Guided Needle Placement IMPRESSION: Intraoperative imaging provided for caudal block. Electronically Signed: Moises Valerio MD at 13:37 EDT ,
[2022-09-14] MEDS: MethylPREDNISolone Acetate 80 MG/ML Vial (12:20)
[2022-09-14] MEDS: Lidocaine 1% (5 ml sdv) 5 ML Vial (12:20)
[2022-09-14] MEDS: 0.9% Normal Saline (Pres. free 10 ML Vial (12:20)
--- NOTE | 2022-09-14 12:22 | OP.PCM_ITS ---
Report of Operation Date of Procedure: 09/14/22 Pre-Operative Diagnosis: Lumbosacral radiculopathy, lumbosacral degenerative di sc disease, lumbosacral spinal stenosis Post-Operative Diagnosis: Lumbosacral radiculopathy, lumbosacral degenerative disc disease, lumbosacral spinal stenosis Surgery/Procedure Performed:: Diagnostic/therapeutic caudal epidural steroid injection under fluoroscopic guidance Type of Anesthesia: MAC Estimated Blood Loss (mL): Minimal Description of Procedure: DESCRIPTION OF PROCEDURE: History and physical of today was reviewed. Risks and benefits of the procedure were explained. The patient understood and agreed to proceed. Informed consent was obtained. IV inserted per routine protocol. The patient was taken to the operating room and placed in the prone position with a pillow positioned underneath the abdomen. The lower back and tailbone area was prepped and draped in a sterile fashion using iodine x3. Under fluoroscopy guidance on a lateral view, the caudal space was identified. The skin and subcutaneous tissue was anesthetized with approximately 3 mL of 1% lidocaine using a 25-gauge regular needle. Under direct visualization with fluoroscopy, using a 22-gauge 3-1/2-inch spinal needle, the needle was advanced via the skin through the sacral hiatus. The tip of the needle was passed through the sacrococcygeal ligament and advanced to approximately S4 area. After negative aspiration of blood or CSF, a total of 3 mL of contrast was injected to confirm correct placement of the needle as well as cephalad spread. The spread was followed to approximately L5 area. After confirmation on AP as well as lateral view and repeated negative aspiration, a total of 15 mL of preservative-free 0.125% Marcaine with 80 mg of Depo-Medrol was injected easily. The needle was then removed intact. The patient experienced no sign or symptoms of intrathecal or intravascular injection. The patient experienced no paresthesia. The procedure was completed without any apparent difficulty or any complications. The patient appeared to tolerate it well. ASSESSMENT AND PLAN: This is a 57-year-old female with lumbosacral radiculopathy, lumbosacral degenerative disc disease, lumbosacral spinal stenosis status post diagnostic/therapeutic caudal epidural steroid injection, patient will continue her current medications, patient will follow in approximately 2 weeks for reevaluation. Complications None
== END 2022-09-14 13:16 | disposition home or self-care (01) ==
LOC: SDC 11:14 → AC 11:14
PROVIDERS: PCP Family Medicine; Referring Provider Anesthesiology Pain Medicine; Visit Provider Anesthesiology Pain Medicine
PROC: 3E0S3BZ Introduction of Anesthetic Agent into Epidural Space, Percutaneous Approach (ICD-10-PCS; CPT 62282; principal; 2022-09-14 12:45)
DX: M48.07 Spinal stenosis, lumbosacral region (principal); M51.17 Intervertebral disc disorders with radiculopathy, lumbosacral region; K21.9 Gastro-esophageal reflux disease without esophagitis; G89.29 Other chronic pain; M54.50 Low back pain, unspecified; G47.33 Obstructive sleep apnea (adult) (pediatric); G47.419 Narcolepsy without cataplexy; G25.81 Restless legs syndrome
CPT/HCPCS: 62323; 64483; 77002; J7120; J3490

== ENCOUNTER 2022-10-13 09:23 | Outpatient (RCR) | payer OTHER, SELFPAY ==
--- NOTE | 2022-10-13 11:29 | HP.PTEVAL ---
Patient's Visit Information TALHA LIU is a 57 year old F referred to Physical Therapy by DESMOND Moore with a diagnosis of DEGENERATIVE OF LUMBOSACRAL INTERVERTEBRAL DISC. Date of Evaluation: 10/13/22 Physical Therapist: Tapan Millard, PT, Cert MDT, OCS - Visit Plan Frequency: 2x /Week Duration: 4 Weeks Plan: PT INTERVETIONS POSTURAL EX'S ,DLS ,ROM ,ACTIVITY MODIFICATION AND POSTURE TRAINING - Subjective This 57 y/o female presents to physical therapy with lumbar pain and radicular symptoms. Patient lumbar radiculopathy right leg buttock hamstrings ~ 1 year . Patient has symptoms for pain many years which has intermittent. Patient seen DR Dutta ordered MRI stenosis mod stenosis and protruding disc. Recommended pain management ,then had epidural injection at [facility] ~ 4weeks. Pain helped some ,thus recommended PT. Aggravating factors sitting ,bending ,lifting . Alleviating factors rest ,standing and walking. Bowel/bladder -.Coughing/sneezing +. Patient has paresthesia/tingling right hamstrings. Patient sleeping good. Celebrex for OA. Housework and job demands aggravates leg pain. Patient does massage 1xweek. Patient has h/o cervical fusion . Patient condition affects QOL. SOCIAL: . VOCATION: [facility] [employer] - Pain Bilateral Back Pain Intensity (Out of 10): 2 Pain Intensity Range: 10 Right Lower Extremity Pain Intensity (Out of 10): 1 Pain Intensity Range: 10 - Objective POSTURE: mild forward posture. GAIT: reciprocal pattern. PALAPTION: unremarkable. NEURO: c/o paresthesia/tingling ,reflexes L3-4,L4-5,L5-S1 2/3. FLEXABLITY: hamstrings min/mod tight. MMT: quads/hamstrings 4/5 , hip flexion 4/5 ,ankle 5/5. LUMBAR ROM flexion mod loss , extension min loss ,side glides min loss - Special Tests L/S Slump test left side: Negative L/S Slump test right side: Negative L/S Left Straight Leg Raise: Negative L/S Right Straight Leg Raise: Negative Lumbar Standing: Flexion - Mechanical Response: No effect Lumbar Standing: Flexion - Symptoms During Testing: No effect Lumbar Standing: Flexion - Symptoms After Testing: No effect Lumbar Standing: Extension - Mechanical Response: No effect Lumbar Standing: Extension - Symptoms During Testing: No effect Lumbar Standing: Extension - Symptoms After Testing: No effect Lumbar Standing: Right Side Glides - Mechanical Response: No effect Lumbar Standing: Right Side Holden - Symptoms During Testing: No effect Lumbar Standing: Right Side Holden - Symptoms After Testing: No effect Lumbar Standing: Left Side Holden - Mechanical Response: No effect Lumbar Standing: Left Side Holden - Symptoms During Testing: No effect Lumbar Standing: Left Side Holden - Symptoms After Testing: No effect Lumbar Lying: Flexion - Mechanical Response: No effect Lumbar Lying: Flexion - Symptoms During Testing: No effect Lumbar Lying: Flexion - Symptoms After Testing: No effect Lumbar Lying: Extension - Mechanical Response: No effect Lumbar Lying: Extension - Symptoms During Testing: Decreases Lumbar Lying: Extension - Symptoms After Testing: No better - Balance/Special Test Scores Oswestry Low Back Score: 9 - Goals Goal 1:: I with HEP for back Goal Time Frame: 4-6 Weeks Goal 2:: Patient demonstrate 50% improvement with function and less pain Goal Time Frame: 4-6 Weeks Goal 3:: Patient to improve lumbar ROM for function of recovery for job demands Goal Time Frame: 4-6 Weeks Goal 4:: Patient to improve back oswestry score by 5 points or > to improve QOL and function Goal Time Frame: 4-6 Weeks - Rehabilitation Potential Physical Therapy Diagnosis: This patient has lumbar stenosis and bulging disc with pain with position and motion testing better with walking and worse with sitting thus benefit from skilled PT Rehabilitation Potential: Good - Anticipated Interventions Patient/Client Instruction: Educate patient on: Condition, Plan of Care For the Purpose of:: To decrease pain, To increase ROM, To improve muscle performance and motor function, To improve ability to perform ADL's, To increase tolerance to activity/condition/position, To improve ability of physical actions for home/community/work/leisure, To improve health of tissue, To decrease soft tissue restriction, To increase flexibility/ROM, To prevent re-injury Therapeutic Exercise to Include: Strength training, Body mechanics, Postural training, Flexibilty training, Dynamic Lumbar Stabilization, Naga Exercises For the Purpose of:: To decrease pain, To increase ROM, To improve muscle performance and motor function, To increase tolerance to activity/condition/position, To improve ability of physical actions for home/community/work/leisure, To improve health of tissue, To decrease soft tissue restriction, To increase flexibility/ROM TENS: Yes IF ES: Yes Cryotherapy (ice pack, ice massage): Yes Thermo therapy (hot pack): Yes Ultrasound (thermal/non thermal): Yes For the Purpose of:: To decrease pain, To increase ROM, To improve health of tissue, To decrease soft tissue restriction Thank you for the opportunity to evaluate your patient. For Medicare and Medicare HMO plans, please review the plan of care and approve it. It will need to be FAXED BACK to us at [phone] for Medicare purposes. For Medicare only, by signing this I certify the plan of care. Please let me know if there are questions or concerns regarding this plan of care. Physician Signature: Date:
--- NOTE | 2023-02-09 08:58 | HP.PT.NRP ---
Patient Information Patient Information: TALHA LIU was seen in my office for initial evaluation on 10/13/22. The following Plan of Care was established for this patient: POC Established Initial Frequency: 2x /Week Initial Duration: 4 Weeks Anticipated Interventions Patient/Client Instruction: Educate patient on: Condition and Plan of Care For the Purpose of:: To decrease pain, To increase ROM, To improve muscle performance and motor function, To improve ability to perform ADL's, To increase tolerance to activity/condition/position, To improve ability of physical actions for home/community/work/leisure, To improve health of tissue, To decrease soft tissue restriction, To increase flexibility/ROM and To prevent re-injury Therapeutic Exercise to Include: Strength training, Body mechanics, Postural training, Flexibilty training, Dynamic Lumbar Stabilization and Naga Exercises For the Purpose of:: To decrease pain, To increase ROM, To improve muscle performance and motor function, To increase tolerance to activity/condition/position, To improve ability of physical actions for home/community/work/leisure, To improve health of tissue, To decrease soft tissue restriction and To increase flexibility/ROM TENS: Yes IF ES: Yes Cryotherapy (ice pack, ice massage): Yes Thermo therapy (hot pack): Yes Ultrasound (thermal/non thermal): Yes For the Purpose of:: To decrease pain, To increase ROM, To improve health of tissue and To decrease soft tissue restriction Last Seen Last Seen: This patient was last seen in our office . Pertinent comments regarding their Physical therapy will appear below: Patient seen for PT intial Evaluation for HEP At this point I will be discontinuing this patient from physical therapy. I would be happy to see this patient again in the future if found appropriate by the physician. Thank you! Tapan Millard, PT, Cert MDT, OCS Balance/Gait/Functional tests Balance/Special Test Scores Oswestry Low Back Score: 9
== END 2022-10-13 19:00 | disposition home or self-care (01) ==
LOC: PT 09:23
PROVIDERS: PCP Family Medicine
DX: M51.37 Other intervertebral disc degeneration, lumbosacral region (principal)
CPT/HCPCS: 97110; 97162

== ENCOUNTER 2022-10-26 08:33 | Day surgery (SDC) | payer OTHER, SELFPAY ==
[2022-10-26] VITALS (7 sets, daily range): BP systolic 95–125; BP diastolic 70–81; PULSE 76–82; RESP 16–17; TEMP 36.4–37; O2SAT 95–100; BMI 32.4
[2022-10-26] MEDS: Lactated Ringers 1,000 ML 15 ML IV (09:07)
--- NOTE | 2022-10-26 09:40 | RAD_ITS ---
PROCEDURE: Right L4-S1 transforaminal injection. DATE OF EXAMINATION: October 26, 2022. INDICATION: Female, 57 years old. Chronic low back pain. FLUOROSCOPY TIME (if supplied): (14 seconds.) minutes/seconds. 3.95 mGy. 6 images were submitted. RAD/Lumbar Spine 2 or 3 Views IMPRESSION: Intraoperative imaging provided for right L4-S1 transforaminal injection. Electronically Signed: Moises Valerio MD at 12:45 EDT ,
[2022-10-26] MEDS: MethylPREDNISolone Acetate 80 MG/ML Vial (09:48)
[2022-10-26] MEDS: Lidocaine 1% (5 ml sdv) 5 ML Vial (09:48)
--- NOTE | 2022-10-26 10:00 | PCM.OPRPT ---
Report of Operation Date of Procedure: 10/26/22 Description of Surgical Findings:: PREOPERATIVE DIAGNOSIS: Lumbosacral radiculopathy, lumbosacral degenerative disc disease, lumbosacral spinal stenosis POSTOPERATIVE DIAGNOSIS: Lumbosacral radiculopathy, lumbosacral degenerative disc disease, lumbosacral spinal stenosis PROCEDURE PERFORMED: Right sided lumbar transforaminal epidural steroid injection, L4-5 and L5-S1. ANESTHESIA: MAC BLOOD LOSS: Minimal COMPLICATIONS: None DESCRIPTION OF PROCEDURE: History and physical of today was reviewed. Risks and benefits of the procedure were explained. The patient understood and agreed to proceed. Informed consent was obtained. IV inserted per routine protocol. The patient was taken to the operating room and placed in the prone position with a pillow positioned underneath the abdomen. The right side of the lower back was prepped and draped in a sterile fashion using iodine x3. Under fluoroscopy guidance on oblique view, the L4 through S1 vertebral bodies were visualized. The skin and subcutaneous tissue was anesthetized with approximately 5 mL of 1% lidocaine using a 25-gauge regular needle. Under direct visualization with fluoroscopy at approximately 35-degree angle, starting on the right L4, ending on the right L5, using a 22-gauge 5-inch spinal needle, the needle was advanced via the skin. The tip of the needle was maneuvered and directed towards the inferior and medial gutter of the transverse process at the superiormost aspect of the neural foramen. Once the tip of the needle was at the vicinity of the foramen, after negative aspiration for blood or CSF, a total of 1 mL of contrast was injected in divided doses between both levels to confirm correct placement of the needle as well as medial spread. The confirmation was obtained on AP as well as lateral view. After repeated negative aspiration and confirmation on AP as well as lateral view, a total of 6 mL of preservative-free 0.25% Marcaine with 80 mg of Depo-Medrol was injected in divided doses between both levels. The needles were then removed intact. The patient experienced no sign or symptoms of intrathecal or intravascular injection. The patient experienced no paresthesia. The procedure was completed without any apparent difficulty or any complications. The patient appeared to tolerate it well. Assessment and plan: This is a 57-year-old female with lumbosacral radiculopathy, lumbosacral degenerative disc disease, lumbosacral spinal stenosis status post right-sided lumbar transforaminal epidural steroid injection L4-5, L5-S1 patient will continue her current medications, patient will follow approximately 2 weeks for reevaluation.
== END 2022-10-26 10:53 | disposition home or self-care (01) ==
LOC: SDC 08:34 → AC 08:37
PROVIDERS: PCP Family Medicine; Referring Provider Anesthesiology Pain Medicine; Visit Provider Anesthesiology Pain Medicine
PROC: 3E0S3BZ Introduction of Anesthetic Agent into Epidural Space, Percutaneous Approach (ICD-10-PCS; CPT 64484; principal; 2022-10-26 10:05)
DX: M48.07 Spinal stenosis, lumbosacral region (principal); M46.96 Unspecified inflammatory spondylopathy, lumbar region; M51.17 Intervertebral disc disorders with radiculopathy, lumbosacral region; M51.36 Other intervertebral disc degeneration, lumbar region; M51.26 Other intervertebral disc displacement, lumbar region; G47.33 Obstructive sleep apnea (adult) (pediatric); Z79.899 Other long term (current) drug therapy
CPT/HCPCS: 64484; 64483; 72100; J7120

== ENCOUNTER → 2023-03-08 | Outpatient (CLI) | payer OTHER, SELFPAY ==
--- NOTE | 2023-03-08 15:24 | RAD_ITS ---
STUDY: X-RAY CHEST REASON FOR EXAM: Female, 57 years old. Shortness of breath for 6 weeks. TECHNIQUE: Frontal and lateral views of the chest. COMPARISON: Chest dated December 2021. FINDINGS: Stable mild hyperinflation. There is no demonstrated pleural abnormality. Borderline cardiomegaly with aortic tortuosity. Normal mediastinum and marta. Normal visualized pulmonary arteries. Normal visualized aortic arch and descending thoracic aorta. Normal visualized thoracic spine. Normal visualized ribs, clavicles, and shoulders. Incidentally noted is lower thoracic and upper lumbar spinal fusion unchanged. No abnormality of the visualized soft tissue structures of the upper abdomen. RAD/Chest PA and Lateral IMPRESSION: Stable chest with no acute or active cardiopulmonary disease. Electronically Signed: Shashank Us MD at 15:35 EDT ,
== END | disposition home or self-care (01) ==
LOC: MTRAD 15:21
PROVIDERS: PCP Family Medicine; Referring Provider Family Medicine; Visit Provider Family Medicine
DX: R06.02 Shortness of breath (principal)
CPT/HCPCS: 71046

== ENCOUNTER 2023-06-14 08:49 | Day surgery (SDC) | payer OTHER, SELFPAY ==
[2023-06-14 09:06] VITALS: BP 129/80; PULSE 81; RESP 18; TEMP 36.7; O2SAT 99; BMI 31.8
--- NOTE | 2023-06-14 09:10 | RAD_ITS ---
PROCEDURE: Transforaminal epidural injection. DATE OF EXAMINATION: June 14, 2023. INDICATION: Female, 58 years old. Chronic low back pain. FLUOROSCOPY TIME (if supplied): (16.1 seconds) minutes/seconds. 8.4 mgy. 2 fluoroscopic images were obtained. RAD/Lumbar Spine 2 or 3 Views IMPRESSION: Intraoperative fluoroscopic services provided for transforaminal epidural injection. Electronically Signed: Moises Valerio MD at 11:24 EST ,
[2023-06-14] MEDS: Lactated Ringers 1,000 ML 15 ML IV (09:19)
[2023-06-14] MEDS: Lidocaine 1% (5 ml sdv) 5 ML Vial (10:09)
[2023-06-14] MEDS: MethylPREDNISolone Acetate 80 MG/ML Vial (10:09)
[2023-06-14 10:20] VITALS: BP 129/80; PULSE 88; RESP 16; TEMP 36.9; O2SAT 95
--- NOTE | 2023-06-14 10:23 | OP.PCM_ITS ---
Report of Operation Date of Procedure: 06/14/23 Description of Surgical Findings:: PREOPERATIVE DIAGNOSES: 1. Lumbosacral radiculopathy. 2. Lumbosacral degenerative disk disease. 3. Lumbosacral spinal stenosis. POSTOPERATIVE DIAGNOSES: 1. Lumbosacral radiculopathy. 2. Lumbosacral degenerative disk disease. 3. Lumbosacral spinal stenosis. PROCEDURE PERFORMED: Right sided lumbar transforaminal epidural steroid injection, L4-5 and L5-S1. ANESTHESIA: MAC. BLOOD LOSS: Minimal. COMPLICATIONS: None. DESCRIPTION OF PROCEDURE: History and physical of today was reviewed. Risks and benefits of the procedure were explained. The patient understood and agreed to proceed. Informed consent was obtained. IV inserted per routine protocol. The patient was taken to the operating room and placed in the prone position with a pillow positioned underneath the abdomen. The right side of the lower back was prepped and draped in a sterile fashion using iodine x3. Under fluoroscopy guidance on oblique view, the L4 through S1 vertebral bodies were visualized. The skin and subcutaneous tissue was anesthetized with approximately 5 mL of 1% lidocaine using a 25-gauge regular needle. Under direct visualization with fluoroscopy at approximately 35-degree angle, starting on the right L4, ending on the right L5, using a 22-gauge 5-inch spinal needle, the needle was advanced via the skin. The tip of the needle was maneuvered and directed towards the inferior and medial gutter of the transverse process at the superiormost aspect of the neural foramen. Once the tip of the needle was at the vicinity of the foramen, after negative aspiration for blood or CSF, a total of 1 mL of contrast was injected in divided doses between both levels to confirm correct placement of the needle as well as medial spread. The confirmation was obtained on AP as well as lateral view. After repeated negative aspiration and confirmation on AP as well as lateral view, a total of 6 mL of preservative-free 0.25% Marcaine with 80 mg of Depo-Medrol was injected in divided doses between both levels. The needles were then removed intact. The patient experienced no sign or symptoms of intrathecal or intravascular injection. The patient experienced no paresthesia. The procedure was completed without any apparent difficulty or any complications. The patient appeared to tolerate it well. ASSESSMENT AND PLAN: This is a 58-year-old female with lumbosacral radiculopathy, lumbosacral degenerative disk disease, and lumbosacral spinal stenosis, status post right- sided lumbar transforaminal epidural steroid injection at L4-5 and L5-S1. The patient will continue her current medications. The patient will follow up in approximately 2 weeks for reevaluation.
[2023-06-14 10:25] VITALS: BP 122/89; BP 129/80; PULSE 82; RESP 16; O2SAT 93
[2023-06-14 10:30] VITALS: BP 127/82; BP 129/80; PULSE 84; RESP 16; TEMP 36.9; O2SAT 95
[2023-06-14 10:47] VITALS: BP 129/80
== END 2023-06-14 10:50 | disposition home or self-care (01) ==
LOC: SDC 08:50 → AC 08:51
PROVIDERS: PCP Family Medicine; Referring Provider Anesthesiology Pain Medicine; Visit Provider Anesthesiology Pain Medicine
PROC: 3E0S3BZ Introduction of Anesthetic Agent into Epidural Space, Percutaneous Approach (ICD-10-PCS; CPT 64484; principal; 2023-06-14 10:05)
DX: M51.17 Intervertebral disc disorders with radiculopathy, lumbosacral region (principal); M48.07 Spinal stenosis, lumbosacral region; G47.33 Obstructive sleep apnea (adult) (pediatric); G25.81 Restless legs syndrome; Z79.899 Other long term (current) drug therapy
CPT/HCPCS: 64484; 01992; 64483; 72100; J7120; J2405

== ENCOUNTER → 2023-07-02 | Outpatient (CLI) | payer OTHER, SELFPAY ==
--- NOTE | 2023-07-02 08:14 | BI_ITS ---
MAMMOGRAPHY - BILATERAL SCREENING REASON FOR EXAM: Female, 58 years old. Routine annual screening examination. PERTINENT HISTORY: Non-contributory. TECHNIQUE: Digital bilateral breast hollie (3D mammographic acquisition) in the CC and MLO projections. 2-D mediolateral oblique (MLO) and craniocaudad (CC) views of both breasts were obtained. CAD: Full Field Digital Mammography with Computer Added Detection was performed. COMPARISON: Comparison is made with prior study dated July 01, 2022 and June 25, 2021. FINDINGS: Breast Composition: There are scattered areas of fibroglandular density. There are no dominant masses or suspicious calcifications. No other significant abnormalities are identified. There has been no significant change since the prior study. BI/SCRN MAMM (CAD)W/HOLLIE BILAT IMPRESSION: Stable bilateral screening mammogram. Yearly follow-up mammogram recommended. (A) ASSESSMENT CATEGORY: BIRADS Category 1: Negative. A letter regarding these results will be sent to the patient by the facility within 30 days. Approximately 10% of breast cancers are not detected by mammography. A normal mammogram should not delay biopsy of a clinically suspicious abnormality. [id number] Electronically Signed: Moises Valerio MD at 15:02 EST ,
--- OUTSIDE RECORDS SUMMARY | 2023-07-02 08:36 | XMS RPT_ITS | CCD ---
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 Name Role Phone Rach Doll DC Unavailable Miguelina Mcneil Unavailable Unavailable aRch Doll DC Unavailable Natalee Cast MD Unavailable Zay Lazar Primary Care Provider [phone] Miguelina Mcneil Unavailable Unavailable SELF, SELF Referring Unavailable MARIA R CANTU Attending Unavailable Allergies Allergy Classification Reported Allergen(s) Allergy Type Date of Onset Reaction(s) Facility (1 source) House dust mite; Translations: [DUST MITES] allergy to substance 7 sneezing [facility] Work Phone: (1 source) Kingdom Animalia; Translations: [ANIMALS] allergy to substance 7 sneezing [facility] Work Phone: (1 source) PLANT POLLENS (HAY FEVER); Translations: [PLANT POLLENS (HAY FEVER)] allergy to substance 7 sneezing [facility] Work Phone: (3 sources) Pollen Drug Allergy 7 Other: See Comments [facility] (3 sources) Seasonal allergy Allergy to substance 0 Unknown [facility] (3 sources) Animal Dander Drug Allergy 7 Other: See Comments [facility] (3 sources) House Dust Mite Drug Allergy 7 Other: See Comments [facility] Medications Completed/Discontinued Medications Medication Drug Class(es) Dates Sig (Normalized) Sig (Original) armodafinil 200 mg oral tablet (5 sources) Start: 07-15-2016 ARMODAFINIL 200 MG TABS takes one tab once daily ARMODAFINIL [id number] Natalee Cast MD Problems Active Problems Problem Classification Problem Date Documented Date Episodic/Chronic Endometriosis (4 sources) Endometriosis of pelvic peritoneum; Translations: [Endometriosis of pelvic peritoneum] Onset: 04-09-2006 04-09-2006 Chronic Osteoarthritis (5 sources) Osteoarthritis; Translations: [Unspecified osteoarthritis, unspecified site] Onset: 03-01-2015 03-01-2015 Chronic Other connective tissue disease (1 source) Adhesive capsulitis of left shoulder; Translations: [Adhesive capsulitis of left shoulder] Onset: 07-15-2016 07-23-2016 Other hereditary and degenerative nervous system conditions (5 sources) Restless legs; Translations: [Restless legs syndrome] Onset: 03-05-2015 03-05-2015 Chronic Other nervous system disorders (1 source) Carpal tunnel syndrome; Translations: [Carpal tunnel syndrome, right upper limb] Onset: 11-09-2019 11-09-2019 Chronic Other nervous system disorders (1 source) Carpal tunnel syndrome of right wrist; Translations: [Carpal tunnel syndrome of right wrist] Residual codes; unclassified (1 source) Obstructive sleep apnea syndrome; Translations: [RENAY on CPAP] Chronic Spondylosis; intervertebral disc disorders; other back problems (7 sources) Degeneration of cervical intervertebral disc; Translations: [Cervical spondylosis] Onset: 12-01-2016 12-01-2016 Chronic Unclassified (5 sources) Sleep apnea; Translations: [Sleep apnea, unspecified] Onset: 03-01-2015 03-01-2015 Chronic Unclassified (1 source) Patient encounter status; Translations: [Preop testing] Past or Other Problems Problem Classification Problem Date Documented Da te Episodic/Chronic Abdominal pain (9 sources) Epigastric pain; Translations: [Right lower quadrant pain] Onset: 05-20-2006 03-01-2015 Episodic Coma, stupor, brain damage (5 sources) Daytime somnolence; Translations: [Somnolence] Onset: 03-01-2015 03-01-2015 Episodic Lymphadenitis (5 sources) Lymphadenopathy; Translations: [Enlarged lymph nodes, unspecified] 01-17-2014 Episodic Other bone disease and musculoskeletal deformities (12 sources) Segmental and somatic dysfunction; Translations: [Segmental and somatic dysfunction of thoracic region] Onset: 12-01-2016 12-01-2016 Episodic Other connective tissue disease (6 sources) Adhesive capsulitis of left shoulder; Translations: [Rotator cuff syndrome] Onset: 07-15-2016 07-23-2016 Episodic Other connective tissue disease (4 sources) Impingement syndrome of shoulder region; Translations: [Impingement syndrome of left shoulder] Onset: 07-15-2016 07-23-2016 Episodic Other connective tissue disease (3 sources) Rotator cuff syndrome; Translations: [Unspecified rotator cuff tear or rupture of left shoulder, not specified as traumatic] Onset: 07-15-2016 07-23-2016 Episodic Other connective tissue disease (1 source) Biceps tendinitis; Translations: [Bicipital tendinitis, left shoulder] Onset: 07-17-2016 07-17-2016 Episodic Other gastrointestinal disorders (4 sources) Disorder of abdomen; Translations: [Abdominal adhesions] Onset: 06-18-2012 06-18-2012 Episodic Other lower respiratory disease (5 sources) Snoring; Translations: [Snoring] Onset: 03-01-2015 03-01-2015 Episodic Other non-traumatic joint disorders (7 sources) Pain in left shoulder; Translations: [Impingement syndrome of shoulder region] Onset: 07-15-2016 07-15-2016 Episodic Other upper respiratory infections (5 sources) Sinusitis; Translations: [Chronic sinusitis, unspecified] Onset: 09-14-2010 09-14-2010 Episodic Sprains and strains (5 sources) Superior glenoid labrum lesion of left shoulder, initial encounter; Translations: [Superior glenoid labrum lesion of left shoulder, initial encounter] Onset: 07-15-2016 07-23-2016 Episodic Unclassified (1 source) Problem Results Test Name Value Interpretation Reference Range Facil ity Vital Signs Date Time Vital Sign Value Performing Clinician Facility 02-19-2020 13:51-0400 Body Temperature 98.6 [degF] Pst 1 [facility] 02-19-2020 13:51-0400 Body weight 78.93 kg Pst 1 [facility] 02-19-2020 13:51-0400 BP Diastolic 77 mm[Hg] Pst 1 [facility] 02-19-2020 13:51-0400 BP Systolic 131 mm[Hg] Pst 1 [facility] 02-19-2020 13:51-0400 Height 162.6 cm Pst 1 [facility] 02-19-2020 13:51-0400 Pulse (Heart Rate) 90 /min Pst 1 [facility] 02-19-2020 13:51-0400 Pulse Oximetry 98 % Pst 1 [facility] 02-19-2020 13:51-0400 Respiratory Rate 16 /min Pst 1 [facility] 12-01-2016 09:50-0400 BMI (Body Mass Index) 26.26 kg/m2 [facility] Work Phone: 12-01-2016 09:50-0400 Body weight 69.4 kg [facility] Work Phone: 12-01-2016 09:50-0400 Pulse (Heart Rate) 82 /min [facility] Work Phone: 12-01-2016 09:50-0400 Respiratory Rate 16 /min [facility] Work Phone: 12-01-2016 09:50-0400 Weight 69.4 kg Rach Doll DC [facility] Work Phone: 07-15-2016 08:06-0500 BMI (Body Mass Index) 27.98 kg/m2 [facility] Work Phone: 07-15-2016 08:06-0500 Weight 73.94 kg [facility] Work Phone: 06-11-2015 10:42-0500 Body Temperature 97.9 [degF] [facility] Work Phone: 06-11-2015 10:42-0500 BP Diastolic 74 mm[Hg] [facility] Work Phone: 06-11-2015 10:42-0500 BP Systolic 116 mm[Hg] Miguelina Mcneil [facility] Work Phone: 06-11-2015 10:42-0500 Pulse (Heart Rate) 67 /min Miguelina Mcneil [facility] Work Phone: 06-11-2015 10:42-0500 Pulse Oximetry 99 % Miguelina Mcneil [facility] Work Phone: 06-11-2015 10:42-0500 Respiratory Rate 18 /min Miguelina Mcneil [facility] Work Phone: 03-05-2015 08:21-0400 Height 162.56 cm Miguelina Mcneil [facility] Work Phone: NEGATED: Highlighted [id number] 14:18-0400 BMI (Body Mass Index) 31.18 kg/m2 George Freeman AT [facility] Work Phone: NEGATED: Highlighted [id number] 14:18-0400 Body weight 82.1 kg George Sittommie AT [facility] Work Phone: NEGATED: Highlighted [id number] 14:18-0400 Body weight 82 kg George Sittommei AT [facility] Work Phone: NEGATED: Highlighted [id number] 14:18-0400 Height 162.56 cm George Freeman AT [facility] Work Phone: NEGATED: Highlighted [id number] 14:18-0400 Height 163 cm George Sittommie AT [facility] Work Phone: Encounters Encounter Date Encounter Type Care Provider Facility Start: 08-19-2021 ambulatory SELF SELF Facility:[facility] Start: 02-22-2020 End: 02-22-2020 Patient encounter procedure [facility] Provider [facility] Start: 02-22-2020 Results Only [facility] Provider [facility] Department Start: 02-19-2020 End: 02-19-2020 Subsequent hospital visit by physician [facility] Procedures Date Procedure Procedure Detail Performing Clinician Start: 02-22-2020 CARDIAC [facility] Provid er Start: 02-19-2020 Antibody screen Plan of Treatment Date Care Activity Detail Author Start: 02-18-2023 DIABETES SCREEN DIABETES SCREEN [facility] Start: 02-27-2020 Influenza vaccination INFLUENZA (#1) [facility] Start: 12-06-2019 End: 12-06-2019 Appointment Appointment [facility] Work Phone: Start: 11-09-2019 End: 11-09-2019 Appointment Appointment [facility] Work Phone: Start: 11-09-2019 End: 11-09-2019 EMG/NCT right upper extremity EMG/NCT right upper extremity [facility] Work Phone: Start: 11-09-2019 End: 11-09-2019 Radex spine cervical 4 or 5 views XR CERVICAL 4VWS FLEX/EXT [facility] Work Phone: Start: 12-10-2016 End: 12-10-2016 Appoint[address] [facility] Work Phone: Start: 12-08-2016 End: 12-08-[address] [facility] Work Phone: Start: 12-03-2016 End: 12-03-2016 Appointment [facility] Work Phone: Start: 12-03-2016 End: 12-03-2016 Follow up Appt 3x/week Follow up Appt 3x/week [facility] Work Phone: Start: 12-01-2016 End: 12-01-2016 Appointment Appointment [facility] Work Phone: Start: 06-11-2015 End: 06-11-2015 Follow Up Appt 6 months Follow Up Appt 6 months [facility] Work Phone: Start: 03-05-2015 End: 03-06-2015 CBC W Auto Differential panel - Blood *CBC without Diff [facility] Work Phone: Start: 03-05-2015 End: 03-05-2015 Follow Up Appt 3 months Follow Up Appt 3 months [facility] Work Phone: Start: 03-05-2015 End: 03-06-2015 Iron and Iron binding capacity panel - Serum or Plasma *IBC Iron & Total Iron Binding Capacity [facility] Work Phone: Start: 2013 SHINGRIX VACCINE (1 of 2) SHINGRIX VACCINE (1 of 2) [facility] Start: 2013 Tuberculosis screening COLORECTAL CANCER SCREENING,SEE MODIFIER [facility] Start: 2008 DIABETES SCREEN DIABETES SCREEN [facility] Start: 2008 LIPID SCREEN LIPID SCREEN [facility] Start: 12-13-2007 HPV TESTING HPV TESTING [facility] Start: 12-13-2007 PAP TESTING PAP TESTING [facility] Start: 2003 Mammography MAMMOGRAM [facility] Start: 1982 Urine microalbumin profile DTAP,TDAP,TD (1 - Tdap) [facility] Start: 1981 HEPATITIS C SCREENING HEPATITIS C SCREENING [facility] Start: 1981 HIV SCREENING HIV SCREENING [facility] Patient Education [facility] Work Phone: [facility] Payers Date Payer Category Payer Unknown MMO MMO TPA [id number] 2019-Present PPO [id number] Social History Date Type Detail Facility Start: 11-09-2019 End: 11-09-2019 Assertion Unknown if ever smoked [facility] Work Phone: Start: 01-05-2020 End: 02-19-2020 Tobacco smoking status NHIS Never smoker [facility] Start: 01-05-2020 End: 02-19-2020 Tobacco use and exposure Never used [facility] Start: 01-05-2020 End: 02-19-2020 Alcohol intake Current drinker of alcohol (finding) [facility] Start: 04-29-2012 Alcohol Comment socially [facility] Sex Assigned At Not on file [facility] Exposure to SARS-CoV -2 (event) Not sure [facility] Progress note 01-10-2021 Note Date & Type Note Facility 01-10-2021 Note HNO ID: [id number] Author: Robert Hernandez MD Service: ? Author Type: Physician Type: Progress Notes Filed: 01/10/2021 9:54 AM Note Text: NEUROSURGERY FOLLOW UP OFFICE NOTE Robert Hernandez MD Date of visit: January 10, 2021 Patient Name: Ms.Lisa Gini Yusuf Date of : 1965 Current Age: [age] year old Sex: female MRN/E# [id number] Last Office Visit: 07/26/2020 Chief Complaint: Patient presents with: Established Patient SUBJECTIVE: Ms. Yusuf presents to the office today for a routine follow up visit with imaging following a C4-7 ACDF and right carpal tunnel release on 02/26/2020. She was last seen on 07/26/2020 and noted overall improvement of pre operative symptoms. She describe tightness in the posterior cervical region and recurrent numbness in the left thumb, index and middle finger. She noted that she had been sitting at a desk for extended periods of time and crocheting. Additionally, she had a left thumb sara release for trigger finger at the end of 2019. Imaging of the cervical spine was reviewed and was satisfactory. She was asked to follow up with routine imaging, prompting her visit today. Today she states she continues to do very well without neck pain or upper extremity symptoms. She is pleased with her progress and has no new concerns today. She notes that she broke her left hand about 4-5 weeks ago and is braced for this. She presents for evaluation and plan of care. Symptoms: none PREVIOUS CONSERVATIVE TREATMENTS: Massage ? PREVIOUS SURGERY: SURGERY #1: Right carpal tunnel release, C4-C7 ACDF?02/26/2020 PAIN EVALUATION No data found in the last 1 encounters. PAST MEDICAL HISTORY Diagnosis Date - Endometriosis - Irritable bowel syndrome - Narcolepsy - RENAY on CPAP doesn't use all the time - Restless legs syndrome (RLS) PAST SURGICAL HISTORY Procedure Laterality Date - HYSTERECTOMY HX - LAP, SURG ENTEROLYSIS 06/17/12 single adhesion, no hernias - LAPAROSCOPY, SURGICAL, APPENDECTOMY 05/08/2006 appendectomy - LIGATE FALLOPIAN TUBE 2000 Tubal ligation - OTHER Left 2016 2017 Left RCT repair - PAST SURGICAL HISTORY OF 1980 and 1989 left knee x2 - PAST SURGICAL HISTORY OF 1985 removal 2 lymph nodes and salivary glands - PAST SURGICAL HISTORY OF 2007 bladder sling - PAST SURGICAL HISTORY OF right shoulder surgery- spurs FAMILY HISTORY Problem Relation Age of Onset - Diabetes Mother - Heart Mother - Hypertension Mother - Hypertension Father - Diabetes Father - Heart Father - Heart Paternal Grandmother - Diabetes Paternal Grandmother ALLERGIES Allergen Reactions - Animal Dander Other: See Comments - House Dust Mite Other: See Comments - Pollens Extract Other: See Comments - Seasonal Allergies Unknown Current Outpatient Medications Medication Sig Dispense Refill - rOPINIRole (REQUIP) 0.5 mg tablet rOPINIRole ROPINIROLE HCL 0.5 MG TABS takes one tab once daily ROPINIROLE HCL [id number] Natalee Cast MD 11-09-2019 [facility] ([id number]) - gabapentin (NEURONTIN) 300 mg capsule Take 300 mg by mouth at bedtime as needed. - armodafinil (NUVIGIL) 200 mg tab Take 200 mg by mouth once daily. - tiZANidine (ZANAFLEX) 4 mg tablet Take 1 tablet by mouth every 8 hours as needed. (Patient not taking: Reported on 01/10/2021 ) 90 tablet 0 - acetaminophen (TYLENOL) 325 mg tablet Take 1-2 tablets by mouth every 4 hours as needed. (Patient not taking: Reported on 01/10/2021 ) - polyethylene glycol 3350 (MIRALAX, GLYCOLAX) 17 gram packet Take 1 Packet by mouth once daily. (Patient not taking: Reported on 03/08/2020 ) - estradiol (ESTRACE) 0.01 % (0.1 mg/gram) vaginal cream Estradiol ESTRACE 0.1 MG/GM CREA uses as directed ESTRADIOL [id number] Natalee Cast MD 11-09-2019 [facility] ([id number]) (Patient not taking: Estradiol ESTRACE 0.1 MG/GM CREA uses as directed ESTRADIOL [id number] Natalee Cast MD 11-09-2019 [facility] ([id number])) No current facility-administered medications for this visit. REVIEW OF SYSTEMS Review of Systems Constitutional: Negative for chills, diaphoresis and fever. HENT: Negative for congestion, ear pain and sinus pressure. Eyes: Negative for discharge and redness. Respiratory: Negative for cough, shortness of breath and wheezing. Cardiovascular: Negative for chest pain, palpitations and leg swelling. Gastrointestinal: Negative for constipation, diarrhea and nausea. Endocrine: Negative for cold intolerance and heat intolerance. Genitourinary: Negative for difficulty urinating, frequency and urgency. Musculoskeletal: Negative for back pain, gait problem and neck pain. Skin: Negative for rash and wound. Allergic/Immunologic: Negative for environmental allergies and food allergies. Neuro (more content not included)... [facility] Progress note 07-26-2020 Note Date & Type Note Facility 07-26-2020 Note HNO ID: [id number] Author: Robert Hernandez Service: ? Author Type: Physician Type: Progress Notes Filed: 07/26/2020 10:21 AM Note Text: NEUROSURGERY FOLLOW UP OFFICE NOTE Robert Hernandez MD Date of visit: July 26, 2020 Patient Name: Ms.Lisa Gini Yusuf Date of : 1965 Current Age: [age] year old Sex: female MRN/E# [id number] Last Office Visit: 04/23/2020 Chief Complaint: Patient presents with: Established Patient: follow up with xrays SUBJECTIVE: Ms. Yusuf presents to the office today for a routine follow up visit with imaging following a C4-7 ACDF AND right carpral tunnel release on 02/26/2020. She was last seen on 04/23/2020 and noted overall improvement of her neck pain and numbness. She described increasing occipital headaches. Today she states she is overall doing well. She reports that she is having tightness in the posterior neck and she has developed recurrent numbness in the left thumb, index and middle finger over the last 6 weeks. States she has been sitting at a desk for long periods of time and crocheting. She also reports that she had surgery on her left thumb for trigger release at the end of 2019. She presents today for evaluation and plan of care. Symptoms: neck stiffness, left thumb, index and middle finger numbness PREVIOUS CONSERVATIVE TREATMENTS: Massage PREVIOUS SURGERY: SURGERY #1: Right carpal tunnel release, C4-C7 ACDF?02/26/2020 PAIN EVALUATION No data found in the last 1 encounters. PAST MEDICAL HISTORY Diagnosis Date - Endometriosis - Irritable bowel syndrome - Narcolepsy - RENAY on CPAP doesn't use all the time - Restless legs syndrome (RLS) PAST SURGICAL HISTORY Procedure Laterality Date - HYSTERECTOMY HX - LAP, SURG ENTEROLYSIS 06/17/12 single adhesion, no hernias - LAPAROSCOPY, SURGICAL, APPENDECTOMY 05/08/2006 appendectomy - LIGATE FALLOPIAN TUBE 2000 Tubal ligation - OTHER Left 2016 2017 Left RCT repair - PAST SURGICAL HISTORY OF 1980 and 1989 left knee x2 - PAST SURGICAL HISTORY OF 1985 removal 2 lymph nodes and salivary glands - PAST SURGICAL HISTORY OF 2007 bladder sling - PAST SURGICAL HISTORY OF right shoulder surgery- spurs FAMILY HISTORY Problem Relation Age of Onset - Diabetes Mother - Heart Mother - Hypertension Mother - Hypertension Father - Diabetes Father - Heart Father - Heart Paternal Grandmother - Diabetes Paternal Grandmother ALLERGIES Allergen Reactions - Animal Dander Other: See Comments - House Dust Mite Other: See Comments - Pollens Extract Other: See Comments - Seasonal Allergies Unknown Current Outpatient Medications Medication Sig Dispense Refill - tiZANidine (ZANAFLEX) 4 mg tablet Take 1 tablet by mouth every 8 hours as needed. 90 tablet 0 - acetaminophen (TYLENOL) 325 mg tablet Take 1-2 tablets by mouth every 4 hours as needed. (Patient not taking: Reported on 03/08/2020 ) - polyethylene glycol 3350 (MIRALAX, GLYCOLAX) 17 gram packet Take 1 Packet by mouth once daily. (Patient not taking: Reported on 03/08/2020 ) - rOPINIRole (REQUIP) 0.5 mg tablet rOPINIRole ROPINIROLE HCL 0.5 MG TABS takes one tab once daily ROPINIROLE HCL [id number] Natalee Cast MD 11-09-2019 [facility] ([id number]) - estradiol (ESTRACE) 0.01 % (0.1 mg/gram) vaginal cream Estradiol ESTRACE 0.1 MG/GM CREA uses as directed ESTRADIOL [id number] Natalee Cast MD 11-09-2019 [facility] ([id number]) - gabapentin (NEURONTIN) 300 mg capsule Take 300 mg by mouth at bedtime as needed. - armodafinil (NUVIGIL) 200 mg tab Take 200 mg by mouth once daily. No current facility-administered medications for this visit. REVIEW OF SYSTEMS Review of Systems Constitutional: Negative for chills, diaphoresis (Negative for night sweats.) and fever. HENT: Negative for ear discharge and rhinorrhea. Eyes: Negative for discharge. Respiratory: Negative for cough, shortness of breath and wheezing. Cardiovascular: Negative for chest pain, palpitations and leg swelling. Gastrointestinal: Negative for constipation, diarrhea, nausea and vomiting. Endocrine: Negative for cold intolerance and heat intolerance. Genitourinary: Negative for frequency. Negative for urinary incontinence and urinary retention. Musculoskeletal: Positive for neck stiffness. Negative for back pain, joint swelling, myalgias and neck pain. Skin: Negative for rash (Negative for hives and skin lesions.). Allergic/Immunologic: Negative for environmental allergies and food allergies. Negative for contact allergy, seasonal allergies. Neurological: Positive for numbness (Negative for numbness in extremities.). Negative for dizziness, seizures, syncope, weakness, light-headedness and headaches. Hematological: Does not bruise/bleed easily. Psychiatric/Behavioral: The patient is not nervous/ (more content not included)... [facility] Progress note 04-23-2020 Note Date & Type Note Facility 04-23-2020 Note HNO ID: [id number] Author: Robert Hernandez Service: ? Author Type: Physician Type: Progress Notes Filed: 04/23/2020 10:05 AM Note Text: NEUROSURGERY POST-OP NOTE Robert Hernandez MD Date of visit: April 23, 2020 Patient Name: Ms.Lisa Gini Yusuf Date of : 1965 Current Age: [age] year old Sex: female MRN/E# [id number] Last Office Visit: 03/14/2020 SURGERY: Right carpal tunnel release, C4-C7 ACDF 02/26/2020 ? Pre-Surgical Symptoms: neck pain, bilateral upper extremity radiculopathy, numbness, tingling, and weakness in bilateral hands? Ms. Yusuf presents to the office today for her 2nd post operative visit. At her first post operative visit, she stated she was doing overall well. She noted significant improvement of her pre op symptoms. She had some posterior cervical stiffness and soreness, but was very pleased with her progress. She stated her right carpal tunnel sutures were bothering her, so she took them out on her own. Her incisions had no signs or symptoms of infection. She was given her a referral to orthopedics for trigger finger in her thumb. Today she states overall she continues to do well. She states her pain and numbness are improved, however continues to notes some stiffness and cracking in the cervical region. She also notes over the last few weeks she has been experiencing increased headaches in the occipital region. She has completed her course of physical therapy and presents today for evaluation and plan of care. Incision: Dry and intact, without redness Current Outpatient Medications Medication Sig Dispense Refill - tiZANidine (ZANAFLEX) 4 mg tablet Take 1 tablet by mouth every 8 hours as needed. 90 tablet 0 - rOPINIRole (REQUIP) 0.5 mg tablet rOPINIRole ROPINIROLE HCL 0.5 MG TABS takes one tab once daily ROPINIROLE HCL [id number] Nataele Cast MD 11-09-2019 [facility] ([id number]) - estradiol (ESTRACE) 0.01 % (0.1 mg/gram) vaginal cream Estradiol ESTRACE 0.1 MG/GM CREA uses as directed ESTRADIOL [id number] Natalee Cast MD 11-09-2019 [facility] ([id number]) - gabapentin (NEURONTIN) 300 mg capsule Take 300 mg by mouth at bedtime as needed. - armodafinil (NUVIGIL) 200 mg tab Take 200 mg by mouth once daily. - acetaminophen (TYLENOL) 325 mg tablet Take 1-2 tablets by mouth every 4 hours as needed. (Patient not taking: Reported on 03/08/2020 ) - polyethylene glycol 3350 (MIRALAX, GLYCOLAX) 17 gram packet Take 1 Packet by mouth once daily. (Patient not taking: Reported on 03/08/2020 ) No current facility-administered medications for this visit. Review of Systems Constitutional: Negative for chills, diaphoresis and fever. HENT: Negative for congestion, ear pain and sinus pressure. Eyes: Negative for discharge and redness. Respiratory: Negative for cough, shortness of breath and wheezing. Cardiovascular: Negative for chest pain, palpitations and leg swelling. Gastrointestinal: Negative for constipation, diarrhea and nausea. Endocrine: Negative for cold intolerance and heat intolerance. Genitourinary: Negative for difficulty urinating, frequency and urgency. Musculoskeletal: Positive for neck pain. Negative for back pain and gait problem. Skin: Negative for rash and wound. Allergic/Immunologic: Negative for environmental allergies and food allergies. Neurological: Negative for dizziness, weakness and numbness. Hematological: Does not bruise/bleed easily. Psychiatric/Behavioral: Negative for agitation. The patient is not nervous/anxious. PAIN EVALUATION 04/23/2020 0941 Pain Level: 3 Pain Location: Neck Description: Aching Duration Units: Weeks Frequency: Intermittent Intervention: Medication;Reposition PHYSICAL EXAM: WOUND ASSESSMENT: Incision healing 1. Cervical spondylosis She is doing very well and overall reports satisfactory improvement compared to preoperative status. She is neurologically stable and her x-rays look satisfactory. She is cleared to return to work next week without restrictions. She will return to see me in 3 to 4 months with plain x-rays of the cervical spine. All her questions were addressed today. - XR CERV GENERAL 2V AP/LAT; Future 2. Carpal tunnel syndrome, bilateral Her incision is well-healed and she reports improvement of her preoperative carpal tunnel syndrome. All of the questions were addressed. Robert Hernandez MD This note was partially generated using Virtualmin voice recognition system, and there may be some incorrect words, spellings, and punctuation that were not noted in checking the note before saving. [facility] Progress note 04-23-2020 Note Date & Type Note Facility 04-23-2020 Note HNO ID: [id number] Author: Quinn Mcgee (Rt) Service: Radiology Author Type: Pneumatic Tube Operator Type: Progress Notes Filed: 04/23/2020 9:44 AM Note Text: Radiology Service Progress Note PATIENT NAME: Caron Yusuf DATE OF SERVICE: April 23, 2020 TIME: 9:43 AM PATIENT IDENTITY VERIFICATION COMPLETED USING TWO (2) IDENTIFIERS: Name and Date of confirmed by patient verbally. FALL SCREENING: Has the patient had 2 falls in the last year or 1 fall with injury or currently using an Ambulatory Assistive Device (Walker, Cane, Wheelchair, Crutches, etc.)? No PATIENT GENDER DATA: Female. status: : No status: NO. PATIENT RELEVANT IMPLANT DATA REVIEWED: Not Applicable RADIOLOGY DEPARTMENT: General X-ray: Exam(s) Completed: Spine X-Ray(s): Cervical AP / LAT PERIPHERAL IV DATA: Not applicable SIGNED BY: RT Everardo April 23, 2020 9:43 AM [facility] Progress note 03-08-2020 Note Date & Type Note Facility 03-08-2020 Note HNO ID: [id number] Author: Robert Hernandez Service: ? Author Type: Physician Type: Progress Notes Filed: 03/08/2020 12:29 PM Note Text: NEUROSURGERY POST-OP NOTE Robert Hernandez MD Date of visit: March 08, 2020 Patient Name: Ms.Lisa Gini Yusuf Date of : 1965 Current Age: [age] year old Sex: female MRN/E# [id number] Last Office Visit: 01/05/2020 SURGERY: Right carpal tunnel release, C4-C7 ACDF 02/26/2020 Pre-Surgical Symptoms: neck pain, bilateral upper extremity radiculopathy, numbness, tingling, and weakness in bilateral hands Patient is having their 1st post operative visit. She states overall she is doing very well and notes significant improvement of her pre op symptoms. She notes posterior cervical stiffness and soreness, but overall is very pleased with her progress. Her incisions are healing well. She states her right carpal tunnel sutures were bothering her, so she took them out on her own. There are no signs or symptoms of infection and is healing nicely. She presents today for evaluation and plan of care. Incision: Dry and intact, without redness Current Outpatient Medications Medication Sig Dispense Refill - benzocaine-menthol (CEPACOL) 15-3.6 mg lozg Use 1 Lozenge as instructed every 2 hours as needed for up to 7 days. 84 Lozenge 0 - acetaminophen (TYLENOL) 325 mg tablet Take 1-2 tablets by mouth every 4 hours as needed. - oxyCODONE-acetaminophen (PERCOCET) 5-325 mg tablet Take 1-2 tablets by mouth every 6 hours as needed for up to 5 days. 40 tablet 0 - polyethylene glycol 3350 (MIRALAX, GLYCOLAX) 17 gram packet Take 1 Packet by mouth once daily. - rOPINIRole (REQUIP) 0.5 mg tablet rOPINIRole ROPINIROLE HCL 0.5 MG TABS takes one tab once daily ROPINIROLE HCL [id number] Natalee Cast MD 11-09-2019 [facility] ([id number]) - estradiol (ESTRACE) 0.01 % (0.1 mg/gram) vaginal cream Estradiol ESTRACE 0.1 MG/GM CREA uses as directed ESTRADIOL [id number] Natalee Cast MD 11-09-2019 [facility] ([id number]) - gabapentin (NEURONTIN) 300 mg capsule Take 300 mg by mouth at bedtime as needed. - armodafinil (NUVIGIL) 200 mg tab Take 200 mg by mouth once daily. No current facility-administered medications for this visit. Review of Systems Constitutional: Negative for chills, diaphoresis and fever. HENT: Negative for congestion, ear pain and sinus pressure. Eyes: Negative for discharge and redness. Respiratory: Negative for cough, shortness of breath and wheezing. Cardiovascular: Negative for chest pain, palpitations and leg swelling. Gastrointestinal: Negative for constipation, diarrhea and nausea. Endocrine: Negative for cold intolerance and heat intolerance. Genitourinary: Negative for difficulty urinating, frequency and urgency. Musculoskeletal: Positive for neck pain. Negative for back pain and gait problem. Skin: Negative for rash and wound. Allergic/Immunologic: Negative for environmental allergies and food allergies. Neurological: Negative for dizziness, weakness and numbness. Hematological: Does not bruise/bleed easily. Psychiatric/Behavioral: Negative for agitation. The patient is not nervous/anxious. PAIN EVALUATION No data found in the last 1 encounters. PHYSICAL EXAM: WOUND ASSESSMENT: Incision healing 1. Cervical spondylosis The patient returns today for follow-up. She is doing very well and is pleased with her progress. Her incisions are well-healed. She will return to see me in a proximally 6 weeks with plain x-rays of the cervical spine. - XR CERV GENERAL 2V AP/LAT; Future - tiZANidine (ZANAFLEX) 4 mg tablet; Take 1 tablet by mouth every 8 hours as needed. Dispense: 90 tablet; Refill: 0 - CONSULT TO PHYSICAL THERAPY; Future 2. Trigger finger, acquired She is complaining of prompt with her left thumb. I told her I could set her up to see one of our orthopedic hand surgeons. She is in agreement with this plan. - CONSULT TO ORTHOPEDICS AND SPORTS MEDICINE Robert Hernandez MD This note was partially generated using Virtualmin voice recognition system, and there may be some incorrect words, spellings, and punctuation that were not noted in checking the note before saving. [facility] Clinical Note 02-28-2020 Note Date & Type Note Facility 02-28-2020 Note HNO ID: [id number] Author: Lexii RomoRn) PETRA Spears Service: Care Management Author Type: Registered Nurse Type: Care Mgt Progress Note Filed: 02/28/2020 10:21 AM Note Text: CARE MANAGEMENT DISCHARGE NOTE SERVICE DATE: 02/28/2020 SERVICE TIME: 10:21 AM LOS: 2 days Admission Date: 02/26/2020 DISCHARGE ARRANGEMENT (list agency and phone number) Discharge Arrangement: Home Provider Name: Zay Lazar CAREGIVER ASSESSMENT: Caregiver is ready, willing and able to meet the patient's needs as recommended by the inter-professional team:: No Caregiver needed Does the patient have an acute stroke diagnosis, or has the patient had a stroke during this admission?: No Patient's transition needs and plan for meeting these needs: home with self care HANDOFF COMMUNICATION: Handoff to: Primary Care Physician Primary Care Physician Name/Phone: summary of care sent to PCP TRANSPORTATION ARRANGEMENTS: Transportation Arrangements: Car(with family) ADDITIONAL CONTACT RESOURCES: n/a Pt dc to home with no TCC needs. SIGNATURE: Lexii Spears RN PATIENT NAME: Caron Yusuf DATE: February 28, 2020 TIME: 10:21 AM PAGER/CONTACT #: [phone] [facility] Clinical Note 02-27-2020 Note Date & Type Note Facility 02-27-2020 Note HNO ID: [id number] Author: Lexii RomoRn) PETRA Spears Service: Care Management Author Type: Registered Nurse Type: Care Mgt Initial Assessment Filed: 02/27/2020 10:21 AM Note Text: CARE MANAGEMENT: ASSESSMENT AND DISCHARGE PLAN SERVICE DATE: February 27, 2020 SERVICE TIME: 10:21 AM PRIMARY CARE PHYSICIAN: Zay Lazar MD ADMISSION STATUS: Inpatient Needs Prior to Discharge: To Be Determined MEDICAL: MMO TPA Patient/Psychology Clinician Stated Goals: To have reduction in symptoms;To return home to life as it was;To be cured/healed Health Insurance: [employer] Health Issues Impacting Discharge Plan: Newly diagnosed Newly Diagnosed: cervical stenosis Last Discharge Date: N/A Is this Within the Past 30 days? Last discharge within 30 days: No Advance Directive: Current Advance Directive: None Slitter Helper Attempted to Assist with AD Completion: Yes Action: Education Provided;Patient Unwilling Health LiteracyHow often do you need to have someone help you when you read instructions, pamphlets, or other written material from your doctor or pharmacy? : 1 - Never How confident are you filling out medical forms by yourself?: 1 - Extremely If Patient scores > 3 on either question, the following interventions were put into place:: Patient did not score > 3 on either question. Baseline Mental Status Prior to this Illness what was the patient's Baseline Mental Status?: Alert AND Oriented Prior to this illness, has anyone described the patient having any of the following behaviors?: Not Applicable Relationship of the informant to the patient:: Self Functional Status: Independent Does Patient Currently Receive Any Community Services or Home Care?: None Equipment Prior to Admission: Bi-level Positive Airway Pressure/Continuous Positive Airway Pressure SOCIAL: Living Arrangements: Home Lives With: Spouse Financial Resources: EmployedPrimary Contact: Extended Emergency Contact Information Primary Emergency Contact: Javon Yusuf Mobile Relation: Spouse Supportive Patient Contact:: Yes Contact Resources: Family Family Name/Phone: Javon Social Needs Food insecurity Worry: Never true Inability: Never true Resources Needed: No Social Needs Financial resource strain: Not hard at all Social Needs Transportation needs Medical: No Non-medical: No Caregiver AssessmentCaregiver is ready, willing and able to meet the patient's needs as recommended by the inter-professional team:: No Caregiver needed Does the patient have an acute stroke diagnosis, or has the patient had a stroke during this admission?: No Patient's transition needs and plan for meeting these needs: home with self care Patient's perception of need for this admission: cervical stenosis surgery Medication Adherance I am convinced of the importance of my prescription medication: 0 - Agree Completely I worry that my prescription medication will do more harm than good to me : 0 - Disagree Completely I feel financially burdened by my [id number] expenses for my prescription medication:: 0 - Disagree Completely Risk Score: 0 Patient is categorized as: Low risk < 2 Are you interested in bedside delivery of your medications? Yes Is Patient Psychosocially Complex?: No ASSESSMENT AND PLAN: Medical Needs: Medical Needs: None Psychosocial Needs: Psychosocial Needs: None FREEDOM OF CHOICE EXPLAINED: [place] of Choice Given: No Reason Not Given: No placements necessary POTENTIAL TRANSITION PLANS Home Pt from home with [employer]. +PCP +DME +RX. Pt hopes to return home with family to transport upon dc. SIGNATURE: Lexii Spears RN PATIENT NAME: Caron Yusuf DATE: February 27, 2020 TIME: 10:21 AM PAGER/CONTACT #: [phone] [facility] Progress note 02-27-2020 Note Date & Type Note Facility 02-27-2020 Note HNO ID: [id number] Author: Kim Perez (Pa) Service: Neurosurgery Author Type: Physician Drywall Taper Type: Progress Notes Filed: 02/27/2020 10:08 AM Note Text: PROGRESS NOTE NEUROSURGERY SERVICE DATE: 02/27/2020 Subjective INTERVAL HPI Ms. Yusuf complains primarily of headache, right hand pain, numbness. She indicates that the pain is focused at her incision site. She reports minimal neck pain that is overshadowed by her hand pain. She denies numbness, tingling, or weakness of any other extremity. She reports mild dysphagia. She had been able to void without complication, is tolerating PO without nausea or vomiting, and is ambulating short distances without assistance. Current Facility-Administered Medications Medication Dose Route Frequency - gabapentin 300 mg cap(s) (NEURONTIN) 300 mg ORAL HS PRN - rOPINIRole 0.5 mg tab(s) (REQUIP) 0.5 mg ORAL AT BEDTIME - morphine 4-6 mg injection 4-6 mg INTRAVENOUS q 3 H PRN - ondansetron 4 mg tab(s) (ZOFRAN) 4 mg ORAL q 6 H PRN Or - ondansetron (PF) 4 mg injection (ZOFRAN) 4 mg INTRAVENOUS q 6 H PRN - docusate sodium 100 mg cap(s) (COLACE) 100 mg ORAL BID - polyethylene glycol 3350 17 g packet (MIRALAX, GLYCOLAX) 17 g ORAL DAILY - bisacodyl 10 mg suppository (DULCOLAX) 10 mg RECTAL DAILY PRN - lactated ringers infusion 75 mL/hr INTRAVENOUS CONTINUOUS - oxyCODONE-acetaminophen 5-325 mg 1-2 tablet (PERCOCET) 1-2 tablet ORAL q 6 H PRN - acetaminophen 325-650 mg tab(s) (TYLENOL) 325-650 mg ORAL q 4 H PRN Objective Physical Exam Performed: General - Alert, cooperative, appropriate Resp - even, unlabored HEENT - Normocephalic. Atraumatic. Neck/Back - Seen up in c-collar. Dressing c/d/i Skin - Hemovac with scant bloody drainage. No leakage from exit site. Neuro - Grossly normal cognition and mentation, PERRL, makes eye contact, speech clear, MELENDREZ, wiggles fingers of right hand. Hypersensitivity to LT of right fingers. Shoulder strength intact. 5/5 LUE strength. Strength of BLE 5/5 and equal. Extremities- RUE hand, wrist covered in dressing and JORGE wrap. BLE dymmetrical. No edema, deformity, coloration changes. VITAL SIGNS 24 HOUR REVIEW: Patient Vitals for the past 24 hrs: BP Temp Temp src Pulse Resp SpO2 Height Weight 02/27/20 0812 129/77 36.5 ?C (97.7 ?F) Oral 96 16 94 % ? ? 02/26/20 2347 136/75 36.7 ?C (98.1 ?F) Oral 91 18 92 % ? ? 02/26/20 1600 114/62 36.7 ?C (98.1 ?F) Oral 74 18 95 % ? ? 02/26/20 1328 ? 162.6 cm (5' 4 ) 76.8 kg (169 lb 5 oz) 02/26/20 1324 137/81 36.5 ?C (97.7 ?F) Oral 80 18 96 % ? ? 02/26/20 1300 132/80 ? ? 85 16 100 % ? ? 02/26/20 1251 ? 37 ?C (98.6 ?F) ? 02/26/20 1245 129/68 ? ? 83 12 100 % ? ? 02/26/20 1230 132/73 ? ? 78 9 100 % ? ? 02/26/20 1215 ? ? ? 83 14 100 % ? ? 02/26/20 1200 131/79 ? ? 84 8 100 % ? ? 02/26/20 1145 151/87 ? ? 85 18 100 % ? ? 02/26/20 1133 ? 36 ?C (96.8 ?F) ? LABS: CBC, Coags, BMP, Mg, Phos Recent Labs 02/27/20 0409 WBC 8.29 HB 10.3* HCT 32.2* PLT 229 NA 137 K 4.0 CHLOR 102 CO2 26 BUN 12 CREAT 0.95 GLUC 121* CA 8.3* DATA: Diagnostic tests reviewed for today's visit: Most recent labs and imaging results. Assessment/Plan This is a 54 y/o female POD 1 s/p C4-C7 ACDF, right carpal tunnel release: -Neuro as above -Hard collar only when up and active and for comfort. -Keep right hand wrapped. -PT/OT -Pain control -Will plan to d/c drain this afternoon if output remains low. Will also address discharge timing at that time. Medication and Non-Pharmacologic VTE Prophylaxis/Anticoagulants 02/26/20 1330 vte pharmacologic prophylaxis contraindicated (ky,ak) 02/26/20 1330 pneumatic compression stockings (ky,ak) 02/26/20 1330 activity - mobilize patient ([place]) VTE Prophylaxis: VTE prophylaxis appropriate SIGNATURE: Kim Perez PA-C PATIENT NAME: Caron Yusuf DATE: February 27, 2020 TIME: 9:56 AM PAGER/CONTACT #: Pager: [phone] [facility] Clinical Note 02-26-2020 Note Date & Type Note Facility 02-26-2020 Note HNO ID: [id number] Author: Jen (Rn) PETRA Redmond Service: Nursing Author Type: Registered Nurse Type: Nursing Progress Note Filed: 02/26/2020 1:08 PM Note Text: Assisted patient up to bathroom and she voided. Ambulated well with little assist. [facility] Chief Complaint Chief Complaint Description Start Date neck pain Preliminary chief co mplaint data, not yet signed by the author as of Instructions Instruction Description Start Date CompletedPatient advised to follow-up with Primary Care Physician for BMI management. Advance Directives There may be information available, but it has not been provided by the sender. No Advanced Directives Records FoundNo Advanced Directives Records FoundNo Advanced Directives Records Found Assessments Diagnosis Preop testing Preoperative examination, unspecified Cervical disc disease Other and unspecified disc disorder of cervical region RENAY on CPAP Obstructive sleep apnea (adult) (pediatric) Cervical spondylosis Cervical spondylosis without myelopathy Carpal tunnel syndrome of right wrist Carpal tunnel syndrome Diagnosis Cervical disc disease Other and unspecified disc disorder of cervical region Carpal tunnel syndrome of right wrist Carpal tunnel syndrome Cervical spondylosis Cervical spondylosis without myelopathy Review of System There may be information available, but it has not been provided by the sender. Family History There may be information available, but it has not been provided by the sender.No Family History Records FoundNo Family History Records FoundNo Family History Records Found History of Present Illness There may be information available, but it has not been provided by the sender. Summary Purpose Additional Source Comments Reason for Visit (unrecogniz ed section and content) Status Reason Specialty Diagnoses / Procedures Referred By Contact Referred To Contact Closed PRE SURG TESTING [facility] Diagnoses Cervical disc disorder, unspecified, unspecified cervical region C4-7 anterior cervical decompression and fusion w/plate and right carpal tunnel release Procedures OFFICE CONSULT LEVEL V COMPLETE PST Robert Fuentes [address] [place] [address] Pre Surg Testing [place] [facility] [address] [facility] [place] [address] Source Comments (unrecognize d section and content) In the event this informatio n is protected by the Federal Confidentiality of Alcohol and Drug Abuse Patient Records regulations: The Federal rules restrict any use of the information to criminally investigate or prosecute any alcohol or drug abuse patient.[facility] the event this information is protected by the Federal Confidentiality of Alcohol and Drug Abuse Patient Records regulations: The Federal rules restrict any use of the information to criminally investigate or prosecute any alcohol or drug abuse patient.[facility] the event this information is protected by the Federal Confidentiality of Alcohol and Drug Abuse Patient Records regulations: The Federal rules restrict any use of the information to criminally investigate or prosecute any alcohol or drug abuse patient.[facility] the event this information is protected by the Federal Confidentiality of Alcohol and Drug Abuse Patient Records regulations: The Federal rules restrict any use of the information to criminally investigate or prosecute any alcohol or drug abuse patient.[facility] Cassie Washington Joby - 02/19/2020 1:40 PM EDT H&P Notes (unrecognized sect ion and content) HISTORY AND PHYSICAL EXAMINATION SERVICE DATE: 02/19/2020 SERVICE TIME: 12:43 PM PRIMARY CARE PHYSICIAN: Zay Lazar MD The patient has the following: ACTIVE PROBLEM LIST ENDOMETRIOSIS OF CUL-DE-SAC Abdominal Pain, Right Lower Quadrant Abdominal Adhesions Subjective CHIEF COMPLAINT: Numbness tingling bilateral arms HPI: This is a 54 year old female presenting to [facility] with the c/o above present for many years. The numbness tingling restricts her mobility. She occasionally has pain described as stabbing along with muscle spasms in her neck. She often gets headaches. Patient states she had an MRI showing multilevel disc disease. After discussion with the surgeon the patient agrees to surgical intervention including right carpal tunnel release. PAST MEDICAL HISTORY Diagnosis Date Endometriosis Irritable bowel syndrome Narcolepsy RENAY on CPAP doesn't use all the time Restless legs syndrome (RLS) PAST SURGICAL HISTORY Procedure Laterality Date HYSTERECTOMY HX LAP, SURG ENTEROLYSIS 06/17/12 single adhesion, no hernias LAPAROSCOPY, SURGICAL, APPENDECTOMY 05/08/2006 appendectomy LIGATE FALLOPIAN TUBE 2000 Tubal ligation OTHER Left 2016 2017 Left RCT repair PAST SURGICAL HISTORY OF 1980 and 1989 left knee x2 PAST SURGICAL HISTORY OF 1985 removal 2 lymph nodes and salivary glands PAST SURGICAL HISTORY OF 2007 bladder sling PAST SURGICAL HISTORY OF right shoulder surgery- spurs FAMILY HISTORY Problem Relation Age of Onset Diabetes Mother Heart Mother Hypertension Mother Hypertension Father Diabetes Father Heart Father Heart Paternal Grandmother Diabetes Paternal Grandmother SOCIAL HISTORY: Social History Tobacco Use Smoking status: Never Smoker Smokeless tobacco: Never Used Substance Use Topics Alcohol use: Yes Comment: socially Drug use: No Prior to Admission medications as of 02/19/20 1401 Medication Sig Last Dose Taking rOPINIRole (REQUIP) 0.5 mg tablet rOPINIRole ROPINIROLE HCL 0.5 MG TABS takes one tab once daily ROPINIROLE HCL [id number] Natalee Cast MD 11-09-2019 [facility] ([id number]) Yes estradiol (ESTRACE) 0.01 % (0.1 mg/gram) vaginal cream Estradiol ESTRACE 0.1 MG/GM CREA uses as directed ESTRADIOL [id number] Natalee Cast MD 11-09-2019 [facility] ([id number]) Yes celecoxib (CELEBREX) 200 mg capsule Take 200 mg by mouth once daily. Yes gabapentin (NEURONTIN) 300 mg capsule Take 300 mg by mouth at bedtime as needed. Yes armodafinil (NUVIGIL) 200 mg tab Take 200 mg by mouth once daily. Yes No medication comments found. ALLERGIES Allergen Reactions Animal Dander Other: See Comments House Dust Mite Other: See Comments Pollens Extract Other: See Comments Seasonal Allergies Unknown REVIEW OF SYSTEMS: PAIN ASSESSMENT: General: Denies fever, chills, and unexpected weight change. Neuro: Denies dizziness, headaches, stroke TIA narcolepsy RLS Respiratory: Denies SOB, cough RENAY CPAP Cardiovascular: Denies CP, palpitations, stents GI: Denies abd pain, N/V/D IBS : Denies dysuria, frequency Endocrine: No history of Diabetes. Hematology: Denies history of bleeding or clotting disorder Musculoskeletal: Denies joint pain and swelling. Skin: Denies open sores, rashes, itching Psych: Denies Anxiety/Depression Diagnostic tests reviewed for today's visit: Lab Value Units Date High Low HB No results within date range. HCT No results within date range. WBC No results within date range. PLT No results within date range. NA No results within date range. K No results within date range. GLUC No results within date range. BUN No results within date range. CREAT No results within date range. PTSEC No results within date range. INR No results within date range. APTT No results within date range. ALT No results within date range. AST No results within date range. TBILI No results within date range. TSH No results within date range. Lab Value Units Date High Low HCGQT No results within date range. UHCG No results within date range. HCG, BODY* No results within date range. Lab Value Units Date High Low ABORHD No results within date range. ABSCREEN No results within date range. No results found for: HBA1C Objective PHYSICAL EXAM: VITALS: BP 131/77 Pulse 90 Temp 98.6 Resp 16 Ht 5' 4 (1.63m) Wt 174 lb (78.9kg) SpO2 98% BMI 29.85 kg/(m^2). General: NAD. Cooperative. Skin: Skin is warm, no rashes, and no open sores. HEENT: Normocephalic. EOM pupils equal round reactive Cardiovascular: Normal S1 & S2. RRR No murmurs Gallops Lungs: CTA. No respiratory distress. No crackles, wheezes, rhonchi Abdomen: Soft. + Bowel Sounds Extremities: No edema, varicose veins, cellulitis Neurological: Alert and oriented x 3 No tremors, weakness, speech abnormality Pulses: radial pulses +2 PLAN known pertinent medical condition which may affect alisha-operative course RENAY uses CPAP intermittently METS: Climb a flight of stairs or walk up a hill (5.50 METs) Patient denies any chest pain or undue shortness of breath with the above physical activity. ANESTHESIA FINDINGS: Significant Anesthesia Considerations: Postop nausea/vomiting Airway History: No history of difficult intubation FAMILY HISTORY OF ANESTHESIA: daughter edema Dentition: Intact Implantable Devices: Sling DX:Cervical disc disease [M50.90] Cervical spondylosis [M47.812] Planned Procedure: Procedure(s): C4-7 anterior cervical decompression and fusion w/plate and right carpal tunnel release (Bilateral) CERVICAL CORPECTOMY ANT. APPROACH W/ DECOMPRESSION SPINAL CORD, EACH ADDITIONAL SEGMENT (Bilateral) DISCECTOMY CERVICAL ANTERIOR WITH FUSION (Bilateral) ARTHRODESIS ANTERIOR W/ MIN DISCECTOMY CERVICAL 2ND INTERSPACE (Bilateral) INSERTION INTERVERTEBRAL BIOMED DEVICE(S) W/ANT INSTR ANCHORING,TO VERTEBRAL CORPECTOMY(IES) DEFECT W/INTERBODY FUSION,EA CONTIGUOUS DEFECT (Bilateral) ALLOGRAFT FOR SPINE SURGERY MORSELIZED (Bilateral) BONE MARROW ASPIRATION FOR BONE GRAFTING,SPINE SURGERY ONLY,VIA SEPARATE SKIN OR FASCIAL INCISION (Bilateral) ANTERIOR INSTRUMENTATION 2 VERTEBRAL SEGMENTS (Bilateral) DECOMPRESSION NERVE MEDIAN CARPAL TUNNEL (Right) at the request of Dr. Robert Hernandez The Following Tests/Procedures Have Been Initiated: C 19 type and screen CBC CMP PT/PTT EKG ordered in [facility] by surgeon CONSULTS: No Consults Pending Planned Anesthetic: General Instructions Given to Patient: Patient given verbal and written preop instructions and voices comprehension/compliance. This note has been produced using [employer] speech recognition software and may contain errors to the system including grammar, punctuation, spelling, gender and words and phrases that may be inappropriate. SIGNATURE: Cassie Washington APRN.TELETYPE TELEGRAPHER PATIENT NAME: Caron Yusuf DATE: February 19, 2020 TIME: 12:43 PM PAGER/CONTACT #: documented in this encounter INFORMATION SOURCE (unrecogn ized section and content) DATE CREATED AUTHOR AUTHOR'S ORGANIZ ATION 01/11/2021 [facility] DATE CREATED AUTHOR AUTHOR'S ORGANIZ ATION 09/17/2021 [facility] FOR RECORDS PERTAINING TO PATIENTS WHO ARE OR HAVE BEEN ENROLLED IN A CHEMICAL DEPENDENCY/SUBSTANCEABUSE PROGRAM, SOME INFORMATION MAY BE OMITTED. This clinical summary was aggregated from multiple sources. Caution should be exercised in using it in the provision of clinical care. This summary normalizes information from multiple sources, and as a consequence, information in this document may materially change the coding, format and clinical context of patient data. In addition, data may be omitted in some cases. CLINICAL DECISIONS SHOULD BE BASED ON THE PRIMARY CLINICAL RECORDS. [facility], [facility]. provides no warranty or guarantee of the accuracy or completeness of information in this document.
== END | disposition home or self-care (01) ==
LOC: OPBI 08:13
PROVIDERS: PCP Family Medicine; Referring Provider Family Medicine; Visit Provider Family Medicine
DX: Z12.31 Encounter for screening mammogram for malignant neoplasm of breast (principal)
CPT/HCPCS: 77063; 77067